=== PATIENT | female | born 1950 | race Caucasian/White ===

== ENCOUNTER 2024-07-11 09:55 | Outpatient (REF) | payer MEDICARE, OTHER, SELFPAY ==
--- OUTSIDE RECORDS SUMMARY | 2024-07-11 11:23 | XMS_ITS ---
Continuity of Care Document (CCD) Created on: July 11, 2024 Danita Kiara M External Reference #: [id number] : [id number] Sex: Female Author Organization [facility] Address [address] [place] [address] [address] [place], [place] Phone [phone] Care Team Providers Care Salad Bar Clerk Name Role Phone Tanja La MD Care Team Information Receive r Unavailable Social History Type Date Description Comments Sex Unknown
== END 2024-07-11 09:56 | disposition home or self-care (01) ==
LOC: HO.HOSX 09:55
PROVIDERS: PCP Family Medicine; Visit Provider Physician Assistant
DX: M50.90 Cervical disc disorder, unspecified, unspecified cervical region (principal)
CPT/HCPCS: 72050; 99202

== ENCOUNTER 2024-07-11 09:55 | Outpatient (AMB) | payer MEDICARE, OTHER, SELFPAY ==
--- NOTE | 2024-07-11 10:36 | A.SPINEOV_ITS ---
Vital Signs 07/11/24 10:45 Height 5 ft 3 in Weight 189 lb BMI 33.5 Intake Visit Reasons: spinal stenosis of lumbar stenosis Intake Note: Ms. Samayoa is here today c/o low back pain that radiates down to the legs Chief Clerk Shelter Required: No Physical Exam Vital Signs: BMI result Body Mass Index 33.5 Assessment & Plan Assessment & Plan (1) Cervical disc disorder: Code(s): M50.90 - Cervical disc disorder, unspecified, unspecified cervical region Category: Medical Plan Dear DR Jo, Thank you for referring Mrs Samayoa to our office today. She is a very nice 73-year-old female with an extensive spinal history including 7 cervical spine surgeries including anterior and posterior, as well as lumbar decompression surgery last year at the [facility]. She had a postoperative infection, and did not get good care there, so she is looking to follow up with us today. Specifically the reason she was sent by according to the patient is left leg weakness which was noted on her routine yearly physical. The patient does have back pain generally in the upper lumbar region. Denies any shooting pain down her leg or tingling or numbness. She does get tingling and numbness of her arms. She is not sure if this dates back all the way to her last neck surgery which was about 10 years ago but it does bother her. She does feel unsteady on her feet at times. She generally just deals with her aches and pains as best she can using [id number] pain medications or marijuana brownies. She had an MRI done at [facility] showing stenosis at L2-3 as well as some degenerative stenosis in the lower thoracic spine. PMH: As mentioned, she has had 7 neck surgeries, the last 10 years ago. History of a lower lumbar surgery, sounds like L4-5 last year at the [facility]. She did well with that in terms of her pain that she had preoperatively was improved but she had poor care, ended up with a superficial infection and had to be on antibiotics but they did not attend to her well. She has had hysterectomy with total oophorectomy when she was 30 years old. Subsequent to this, she has developed osteopenia/osteoporosis. She also has had parathyroidectomy. Bilateral carpal tunnel, knee surgery, breast reduction surgery, hypertension, high cholesterol. Denies any history of heart attacks, strokes, bleeding disorders, blood clots, major abdominal surgery. She did have a pulmonary nodule discovered on a CT scan and she just getting routine follow- ups for that. It did not look suspicious for cancer. Social hx: She has not smoke, she does take marijuana Brownies routinely, occasional alcohol Medications: Lisinopril, simvastatin, amlodipine, sertraline Allergies: None Physical exam: She is awake alert oriented no acute distress, she is able to get up out of a chair albeit slowly, she can walk down the hallway, no unsteadiness of her gait, motor examination reveals some mild hand weakness and a 4-5 left iliopsoas weakness. Distal lower extremity and proximal upper extremity strength was all normal. She is diffusely hyperreflexic, more so in the lower extremities with clonus and Jones's sign on the right hand as well. She has multiple well-healed incisions on the right side of her neck anteriorly, a 18 inch incision extending from the base of her skull all the way down to the upper thoracic. It appears well healed. She has a well-healed incision on her lower lumbar spine. Imaging review: I was unable to look at the images on the computer today due to some technical difficulties with the website for [facility], but apparently it shows that she has stenosis at L2-3 as well as possibly some degenerative changes in the lower thoracic spine that could be effacing the spinal cord. Impression: 73-year-old female with extensive spinal history is listed above, with presentation of some left iliopsoas weakness which was noted on her routine physical exam. She did not want to go back to the [facility] for follow-up due to the care she received there. She was sent today to see us and she is demonstrating some signs of myelopathy on her exam but I am not sure if this is pre-existing. The patient herself has not really noticed a decrease in her functional abilities because of it. I agree that the weakness in her left iliopsoas and the weakness in her hands could be neurological, so we should look a little more thoroughly into this with a cervical MRI and a dedicated thoracic MRI. She does have stenosis in the lumbar spine at L2-3 which can affect the hip flexor muscle groups but she has no leg pain suggesting nerve irritation. Once the MRIs are completed I will call the patient back to reassess. Thank you for allowing us to care for your patient. The total time spent with this visit with this patient was 45 minutes reviewing history, physical exam, lumbar imaging review, and implementation of treatment plan or further diagnostic testing Jose Cruz Thrasher MD,PhD [facility] Orders: Orders MR thoracic spine wo con Today R29.898 - Other symptoms and signs involving the musculoskeletal system MR cervical spine wo con Today R20.0 - Anesthesia of skin XR cervical spine 4V Today M50.90 - Cervical disc disorder, unspecified, unspecified cervical region Coding Level of Care Code New Pt Level 4 (16071) Diagnoses Cervical disc disorder M50.90
[2024-07-11 10:45] VITALS: BMI 33.5
== END 2024-07-11 12:07 | disposition home or self-care (01) ==
PROVIDERS: PCP Family Medicine; Visit Provider Physician Assistant
DX: M50.90 Cervical disc disorder, unspecified, unspecified cervical region (principal)
CPT/HCPCS: 99204

== ENCOUNTER 2024-07-22 11:25 | Outpatient (AMB) | payer MEDICARE, OTHER, SELFPAY ==
--- NOTE | 2024-07-22 11:40 | A.SPINEOV_ITS ---
Intake Visit Reasons: MRI f/up Intake Note: Ms. Samayoa is here to F/u on the results to her MRI. Lumber Cutter Required: No Assessment & Plan Assessment & Plan (1) Cervical disc disorder: Code(s): M50.90 - Cervical disc disorder, unspecified, unspecified cervical region Category: Medical Plan Mrs Samayoa came back today to review her cervical and her thoracic MRI. There were done at [place]. There is no formal report back yet, but I do not see any evidence of spinal cord compression anywhere in the cervical or the thoracic spine to explain her left hip flexor weakness. There are extensive postsurgical changes in the anterior and posterior cervical thoracic spine extending from C3 down to T2. The patient does not notice the symptoms impacting her daily function and she believes they may have been related to her previous spinal cord compression for which she had surgery. This certainly could be a remnant of her previous myelopathy. Her lumbar MRI does show this moderate stenosis at L2-3 but she really does not have any claudicating leg pains to report. There is some lateral recess stenosis on the left at L4-5 at her previous surgical site, but that would not explain hip flexor weakness. 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 If it gets worse, the other option would be to consider brain MRI. Total amount of time spent in this visit was 20 minutes in discussion of symptoms, cervical and thoracic imaging results and subsequent plan of care Jose Cruz Thrasher MD,PhD [facility] Coding Level of Care Code Est Pt Level 3 (33112) Diagnoses Cervical disc disorder M50.90
--- OUTSIDE RECORDS SUMMARY | 2024-07-22 11:44 | XMS_ITS | Continuity of Care Document ---
Author Organization [facility] Address [address] [place] [address] [address] [place], [place] Phone [phone] Care Team Providers Care Manager Strategic Partnerships Name Role Phone Tanja La MD Care Team Information Receive r Unavailable Social History Type Date Description Comments Sex Unknown
== END 2024-07-22 13:34 | disposition home or self-care (01) ==
PROVIDERS: PCP Family Medicine; Visit Provider Physician Assistant
DX: M50.90 Cervical disc disorder, unspecified, unspecified cervical region (principal)
CPT/HCPCS: 99213

== ENCOUNTER → 2024-07-22 11:25 | Outpatient (BNVA) | payer MEDICARE, OTHER, SELFPAY | PROVIDERS: PCP Family Medicine; Visit Provider Physician Assistant | DX: M50.90 Cervical disc disorder, unspecified, unspecified cervical region (principal) | CPT/HCPCS: 99212 ==

== ENCOUNTER 2024-12-01 13:38 | Outpatient (AMB) | payer MEDICARE, OTHER, SELFPAY ==
--- NOTE | 2024-12-01 13:43 | HO.SPINEOV ---
Intake Visit Reasons: LBP & leg pain Intake Note: Ms. Samayoa is here today c/o low back and leg pain. Airline Pilot/First Officer Required: No Assessment & Plan Assessment & Plan (1) Left leg weakness: Code(s): R29.898 - Other symptoms and signs involving the musculoskeletal system Category: Medical (2) Lumbar radiculopathy: Code(s): M54.16 - Radiculopathy, lumbar region Category: Medical Plan Mrs Samayoa is here in follow-up. She was seen here last year for evaluation of a left proximal leg weakness that presented itself without any pain or numbness. At the time we did thoracic imaging at [facility] at the [facility] and we are not clear that there was anything specifically pressing on the cord. There was some mentioned in the radiology report that came later on down the road that there may have been some prominence of the dorsal CSF that maybe causing some constriction of the spinal cord, but it was not clear that this was giving her symptoms. When she underwent her back surgery on the left at L4-5 a year and a half ago, it was presented to her that this could be the source of the weakness, but unfortunately that did not improve the weakness. She comes back today with new symptoms. Over the last few months she developed a worsening of the left leg weakness proximally, and a new right sided lumbar radiculopathy radiating from her back down into her anterior thigh to her knee. The symptoms on the left are still bothersome in the sense that when she is trying to roll over in bed it can be painful and when she is trying to get out of a car she has trouble lifting her leg to get it in position stand. On the right side, it is clearly connected with activity and walking that will give her pain shooting down the front of her leg. On my exam, she is still demonstrating some signs of myelopathy with hyperreflexia and a 2/5 left hip flexor weakness. The right side is full strength. I went back and reviewed her MRI again, there is some slight prominence of the dorsal CSF at T3-4 which is below her previous fusion which extended from C3-T2. I think it is worth looking at that again with an MRI to see if there has been any increase in what the radiologist describes as a potential source for myelopathy. Also, her MRI from last year is also showing disc bulge/herniation on the right at L2-3. This would explain the correct dermatome down into the anterior thigh for the leg pain. I would like to repeat that as well and see if this is still there, or if it is retracted itself. If it is still present, it might be a surgical target for simple diskectomy and decompression. I will see her back after the MRIs are completed. Total amount of time spent in this visit was 20 minutes in discussion of symptoms, previous lumbar and thoracic imaging results and subsequent plan of care Jose Cruz Thrasher MD,PhD [facility] Orders: Orders MR lumbar spine wo/w con Today R29.898 - Other symptoms and signs involving the musculoskeletal system MR thoracic spine wo con Today M54.16 - Radiculopathy, lumbar region Coding Level of Care Code Est Pt Level 3 (83136) Diagnoses Left leg weakness R29.898 Lumbar radiculopathy M54.16
--- OUTSIDE RECORDS SUMMARY | 2024-12-01 14:00 | XMS_ITS | Encounter Summary ---
Author Organization [facility] Address [address] [address] Phone Care Team Providers Care Railway Engineer Name Role Phone Radha Jo Primary Care Provider [phone] Encounter Details Date Type Department Care Team (Late st Contact Info) Description 06/04/2023 Procedure Pass [facility] Periop [address] [place] [address] Social History Tobacco Use Types Packs/Day Years Used Date Smoking Tobacco: Former Smokeless Tobacco: Never Alcohol Use Standard Drinks/Week Comments Yes 0 (1 standard drink = 0.6 oz pur e alcohol) rarely Education Answer Date Recorded Are you interested in more education? Not on marychuy e 05/03/2023 Are you concerned about learning? Not on file 05/03/2023 No 05/03/2023 No 05/03/2023 Digital Access Answer Date Recorded No 05/03/2023 No 05/03/2023 Reliable internet access at home? Not on file 05/03/2023 Device with a working camera? Not on file Intimate Partner Violence Answer Date R ecorded Are you denied basic needs s uch as food, clothing, or medical care? No 06/04/2023 In the past 12 months have y ou been in a relationship with a person who hurts, threatens, or tries to control you? No 06/04/2023 Are you denied basic needs s uch as food, clothing, or medical care? No 06/04/2023 In the past 12 months have y ou been in a relationship with a person who hurts, threatens, or tries to control you? No 06/04/2023 Comments No Sex and Gender Information Value Date Recorded Sex Assigned at Female 05/03/2023 3:34 PM EDT Legal Sex Female 6:59 PM EST Gender Identity Female 05/03/2023 3:34 PM EDT Sexual Orientation Straight 05/03/2023 3: 34 PM EDT documented as of this encounter Functional Status * Calculated C-SSRS Risk Score (Lifetime/Recent) Answer Date of Assessment Author No Risk Indicated 06/05/2023 7:00 AM Nancy Hernandez RN * [place] Suicide Severity Rating Scale (Screener/Recent Self-Report) Question Answer Date of Assessment Author 1. Wish to be (Past 1 Month) No 06/05/2023 7:00 AM Cosmo Fields RN 2. Non-Specific Active Suici juan antonio Thoughts (Past 1 Month) No 06/05/2023 7:00 AM Alyce Fields RN 6. Suicidal Behavior (Lifetime) No 7:00 AM Nancy Fields RN documented as of this encounter Plan of Treatment Not on file documented as of this encounter Visit Diagnoses Not on filedocumented in this encounter Care Teams Railway Engineer Relationship Specialty Start Date End Date Rdaha Jo DO [address] [place] [phone] PCP - General Family Medicine 05/03/23 documented as of this encounter Additional Source Comments The information contained in this document represents components of the legal health record. It is not the complete legal health record.[facility]
--- OUTSIDE RECORDS SUMMARY | 2024-12-01 14:00 | XMS_ITS | Encounter Summary ---
Author Organization [facility] Address [address] [address] Phone Care Team Providers Care Rubber Flap Cutter Name Role Phone Radha Jo Primary Care Provider [phone] Encounter Details Date Type Department Care Team (Late st Contact Info) Description 06/04/2023 Procedure Pass [facility] [address] [place] [address] Social History Tobacco Use Types Packs/Day Years [...] 06/05/2023 7:00 AM Nancy Hernandez RN * [place] Suicide Severity Rating Scale (Screener/Recent Self-Report) Question Answer Date of Assessment Author 1. Wish to be (Past 1 Month) No 06/05/2023 7:00 AM Cosmo Fielsd RN 2. Non-Specific Active Suici juan antonio Thoughts (Past 1 Month) No 06/05/2023 7:00 AM Alyce Fields RN 6. Suicidal Behavior (Lifetime) No 7:00 AM Nancy Fields RN documented as of this encounter Plan of Treatment Not on file documented as of this encounter Visit Diagnoses Not on filedocumented in this encounter Care Teams Rubber Flap Cutter Relationship Specialty Start Date End Date Radha Jo DO [address] [place] [phone] PCP - General Family Medicine 05/03/23 documented as of this encounter Additional Source Comments The information contained in this document represents components of the legal health record. It is not the complete legal health record.[facility]
--- OUTSIDE RECORDS SUMMARY | 2024-12-01 14:00 | XMS_ITS | Continuity of Care Document ---
Author Organization [facility] Address [address] [place] [address] [address] [place], [place] Phone [phone] Care Team Providers Care Exam Proctor Name Role Phone Tanja La MD Care Team Information Receive r Unavailable Social History Type Date Description Comments Sex Unknown
--- OUTSIDE RECORDS SUMMARY | 2024-12-01 14:00 | XMS_ITS | Clinical Summary ---
Author Organization [facility] Address [address] [place] [phone] Phone Care Team Providers Care Collar Sewer Name Role Phone Radha Jo Primary Care Provider [phone] Allergies Active Allergy Reactions Criticality Noted Date Comments Carisoprodol Other (See Comments) 12/03/2013 UNKNOWN Codeine Other (See Comments) 12/03/2013 NAUSEA,VOMITING Influenza Virus Vaccine, Specific Other (See Comments) 12/03/2013 ANAPHYLAXIS Iodinated Contrast Media Other (See Comments) 12/03/2013 UNKNOWN Morphine Other (See Comments) 12/03/2013 RASH,HIVES Nabumetone Other (See Comments) 12/03/2013 UNKNOWN Paroxetine Other (See Comments) 12/03/2013 RASH Pregabalin Other (See Comments) 12/03/2013 SEVERE SHAKING Rofecoxib Other (See Comments) 12/03/2013 UNKNOWN Sulfadiazine Other (See Comments) 12/03/2013 UNKNOWN Sulfamethoxazole Other (See Comments) 12/03/2013 UNKNOWN Tramadol Other (See Comments) 12/03/2013 UNKNOWN Medications lisinopril (PRINIVIL,ZESTR IL) 20 MG tablet Take 40 mg by mouth every morning. 3 Active sertraline (ZOLOFT) 50 MG tablet Take 1 tablet by mouth every morning. 3 Active simvastatin (ZOCOR) 20 MG tablet Take 20 mg by mouth nightly at bedtime. 3 Active polycarbophil (FIBERCON) 625 mg tablet Take 625 mg by mouth daily. Active cholecalciferol (VITAMIN D3) 400 unit tablet Take 400 Units by mouth daily. Active acetaminophen (TYLENOL) 325 mg tablet Take 2 tablets (650 mg total) by mouth every 6 (six) hours as needed. 90 tablet Active diazePAM (VALIUM) 5 MG tablet Take 1 tablet (5 mg total) by mouth every 8 (eight) hours as needed. 14 tablet 3 Active Additional Information Patient not taking.Reported on 07/10/2023 oxyCODONE 5 MG immediate release tablet Take 1-2 tablets (5-10 mg total) by mouth every 4 (four) hours as needed. Partial fill ok 30 tablet 3 Active Additional Information Patient not taking.Reported on 07/10/2023 bisacodyl (DULCOLAX) 5 mg EC tablet Take 1 tablet (5 mg total) by mouth daily as needed. 30 tablet 3 Active amoxicillin (AMOXIL) 875 MG tablet 3 Active Active Problems Problem Noted Date Diagnosed Date Lumbar radiculopathy 06/04/2023 Herniation of nucleus pulposus 01/01/2014 Overview (09/12/2014): Herniation of nucleus pulposus Spondylosis 11/21/2013 Overview (09/12/2014): Spondylosis; C7-T1 Neck pain 11/21/2013 Overview (09/12/2014): Neck pain Social History Tobacco Use Types Packs/Day Years Used Date Smoking Tobacco: Former Smokeless Tobacco: Never Tobacco Cessation:Counseling Given: Not Answered Alcohol Use Standard Drinks/Week Comments Yes 0 [...] Orientation Straight 05/03/2023 3: 34 PM EDT Last Filed Vital Signs Vital Sign Reading Time Taken Comments Blood Pressure 177/76 08/14/2023 10:22 AM EST Pulse 59 08/14/2023 10:22 AM EST Temperature 36.3 ??C (97.3 ??F) 07/10/2023 10:[address] Respiratory Rate 16 08/14/2023 10:13 AM EST Oxygen Saturation 97% 08/14/2023 10:22 AM EST Inhaled Oxygen Concentration - - Weight 89.8 kg (198 lb) 08/14/2023 10:13 AM EST Height 157.5 cm (5' 2 ) 08/14/2023 10:13 AM EST Body Mass Index 36.21 08/14/2023 10:13 AM EST Plan of Treatment Health Maintenance Due Date Last Done Comments LIPID PANEL 1950 DEPRESSION SCREENING 1962 SMOKING Hx and SMOKELESS TOBACCO SCREENING 12/07/1963 HEPATITIS B SCREENING 1968 HEPATITIS C SCREENING 1968 MAMMOGRAM 1990 COLOGUARD 12/07/1995 COLONOSCOPY 12/07/1995 COLORECTAL CANCER SCREENING 12/07/1995 FIT TEST 12/07/1995 FOBT 12/07/1995 SIGMOIDOSCOPY 12/07/1995 VIRTUAL COLONOSCOPY 12/07/1995 CREATININE LEVEL 06/15/2015 06/15/2014, , 05/08/2014, Additional history exists POTASSIUM LEVEL 06/15/2015 06/15/2014, 04/22, 05/08/2014, Additional history exists OSTEOPOROSIS SCREENING INITIAL (ONE-TIME) 12/07/2015 PNEUMOCOCCAL VACCINES (50+ years) (2 of 2 - PCV) 11/30/2019 11/29/2018 COVID-19 VACCINE ( season) 2024 05/17/2023, 04/25/2022, 02/01/2022, Additional history exists Adult Td,Tdap Booster 03/28/2031 03/28/2021 ZOSTER VACCINES Completed 07/28/2020, 05/24/2020 RSV VACCINE Completed 06/28/2023 HEPATITIS A VACCINES Aged Out No long er eligible based on patient's age to complete this topic HEPATITIS B VACCINES Aged Out No long er eligible based on patient's age to complete this topic HIB VACCINES Aged Out No longer eligi ble based on patient's age to complete this topic MENINGOCOCCAL VACCINES (ACWY) Aged Out No longer eligible based on patient's age to complete this topic Medical Devices Not on file Procedures Procedure Name Priority Date/Time Associated Diagnosis Comments HISTORICAL LAB Routine 06/15/2014 10:18 PM EST from Last 3 Months or Most Recently Relevant to Health Maintenance Results * (ABNORMAL) Historical Lab (06/15/2014 10:18 PM EST) GLUCOSE 91 70 - 100 mg/dL [facility] UREA N 16 6 - 23 mg/dL [facility] CREATININE 1.15 0.50 - 1.20 mg/dL [facility] eGFR 48(A) 60 - 150 mL/min/1.7 3m2 [facility] Comment:If patient is black, multiply result by 1.21 SODIUM 143 136 - 145 mmol/L [facility] POTASSIUM 3.9 3.4 - 5.0 mmol/L [facility] CHLORIDE 104 98 - 107 mmol/L [facility] TOTAL CO2 27 22 - 31 mmol/L [facility] CALCIUM 9.6 8.8 - 10.7 mg/dL [facility] ANION GAP 12 5 - 17 mmol/L [facility] 06/15/2014 10:1 8 PM EST Comment:BLOOD Narrative [facility] - 06/15/2014 10:18 PM EST [id number] us Conversion Provider Not In Sys LAB BLOOD ORDERAB LES Final Result Performing Organization Address City/State/[place] Co de Phone Number [address] [address] from Last 3 Months or Most Recently Relevant to Health Maintenance Insurance MEDICARE PART A & B Member Subscriber Plan / Payer (Ef fective 2015-Present) Name:Kiara Samayoa Member ID:[id number] Relation to Subscriber:Self Name:Kiara Samayoa Subscriber ID:[id number] Payer ID:[id number] Group ID:Not on file Type:Medicare Address: [email or web address] [facility] [address] [place] [id number] [facility] MEDICARE SUPPLEMENT MEDICARE PART A & [place] [address] [place] [address] [employer] MEDICARE SUPPLEMENT MEDICARE PART A & B [facility] MEDICARE SUPPLEMENT MEDICARE PART A & B [employer] MEDICARE SUPPLEMENT MEDICARE PART A & B [place] MEDICARE SUPPLEMENT MEDICARE PART A & B [facility] MEDIC[facility] SUPPLEMENT Advance Directives For more information, please contact: [phone] (9AM - 5PM [facility], Sunday-Sunday) * Full Code (Latest Code Status on File) Date Activated Date Inactivated Comments 06/04/2023 9:19 AM Question Answer Comments Code Status Confirmed With: Patient Care Teams Collar Sewer Relationship Specialty Start Date End Date Radha Jo DO [address] [place] [address] [address] [place] [address] PCP - General Family Medicine 05/03/23 Additional Source Comments The information contained in this document represents components of the legal health record. It is not the complete legal health record.[facility]
--- OUTSIDE RECORDS SUMMARY | 2024-12-01 14:00 | XMS_ITS | Encounter Summary ---
Author Organization [facility] Address [address] [place] [id number] Phone Care Team Providers Care Developer Architect Name Role Phone Radha Jo DO Primary Care Provider [phone] Encounter Details Date Type Department Care Team ([facility] st Contact Info) Description 05/03/2023 Procedure Pass [facility] Imaging, [place] [address] [place] [address] Social History Tobacco Use Types Packs/Day Years Used Date Smoking Tobacco: Former Education Answer Date Recorded Are you interested in more education? Not on marychuy e 05/03/2023 Are you concerned about learning? Not on file 05/03/2023 No 05/03/2023 No 05/03/2023 Digital Access Answer Date Recorded No 05/03/2023 No 05/03/2023 Reliable internet access at home? Not on file 05/03/2023 Device with a working camera? Not on file Comments Unknown Sex and Gender Information Value Date Recorded Sex Assigned at Female 05/03/2023 3:34 PM EDT Legal Sex Female 6:59 PM EST Gender Identity Female 05/03/2023 3:34 PM EDT Sexual Orientation Straight 05/03/2023 3: 34 PM EDT documented as of this encounter Plan of Treatment Not on file documented as of this encounter Visit Diagnoses Not on filedocumented in this encounter Care Teams Developer Architect Relationship Specialty Start Date End Date Radha Jo DO NPI: [id number] [place] [address] [address] [place] [address] PCP - General Family Medicine 05/03/23 documented as of this encounter Additional Source Comments The information contained in this document represents components of the legal health record. It is not the complete legal health record.[facility]
--- OUTSIDE RECORDS SUMMARY | 2024-12-01 14:00 | XMS_ITS | Data Portability ---
Author Organization [facility] Address [address] [place] [address] Care Team Providers Care Sdc Teacher Name Role Phone BONNIE PATEL Primary Care Provider [phone] BONNIE PATEL Referring Provider Assessment No assessment recorded. Plan of Treatment Reminders Order Date Submit Date Provider Last Modified By Organization Details Last Modified Time Details Appointments PCP-Offic e Visit-30 Min 2024 09:30A M Radha DiVito, DO Not available Not available Not available PCP-Medic are Exam-30 Min 2024 09:00A M Radha DiVito, DO Not available Not available Not available Lab vitamin B12 + folate, serum or blood 2024 025 [facility] Patient Reg, [address] [place], [address], 11/06/2024 22:07:15 rapid strep group A, throat 2024 025 In-Office Order, Internal Use Only DO Not Attach Compendium DO Not Attach Compendium, Do Not Delete/merge, [id number] 10/17/2024 16:38:09 25-hydrox yvitamin D2 + 25-hydrox yvitamin D3, QN, serum or plasma 2024 025 [facility] Patient [facility], [address] [place], [address], 10/08/2024 15:21:37 Referral neurologi mily surgeon referral - Please schedule and advise patient. Thank you! 2023 024 [email or web address] Barrera Thrasher MD, [address] [place] [address] [address], [place], [address], 11/05/2024 09:33:45 Procedures None recorded. Surgeries None recorded. Imaging None recorded. Medication Orders nystatin 100,000 unit/mL oral suspensio n 2024 025 [facility], [address] [place], [address], 10/16/2024 12:37:26 Prolia 60 mg/mL subcutane ous syringe 2024 025 Not available 09/03/2024 12:34:47 Prolia 60 mg/mL subcutane ous syringe [address] [facility], [address] [place], [address], 08/28/2024 09:22:48 Patient TargetsNo targets recorded. Patient InstructionsNo instructions recorded. Reason for Referral Neurological Surgeon Referra l for Spinal stenosis of lumbar region Please schedule and advise patient. Thank you! Referring Physician: Radha Troy, Family Medicine, Encounter Date: 07/02/2024 Results Created Date Observation Date Name Description Value Unit Range Abnormal Flag Note LastModifiedBy Organization Detail LastModifiedTime 10/09/1910/08/2024 VITAM IN D 25-OH TOTAL vitamin D 25-oh total 32.4 NG/mL Refer ence Range : Defic ient <20 ng/mL Insuf ficie nt 21-29 ng/mL Suffi cient >30 ng/mL Not Available [facility] Laboratory Department [address] [place], [address] 10/08/2024 15:21:37 10/18/1910/17/2024 rapid strep group A, throa t Results negati ve Not Available In-Office Order Internal Use Only DO Not Attach Compendium DO Not Attach Compendium, Do Not Delete/merge, [id number] 10/17/2024 16:36:17 11/07/19 25 11/06/2024 VITAM IN B12 AND FOLAT E vitamin B12 1748 pg/mL 232-12 45 high Not Available [facility] Laboratory Department [address] [place], [address] 11/06/2024 22:07:15 11/07/19 25 11/06/2024 VITAM IN B12 AND FOLAT E folate 10.2 NG/mL 4.8-18 .8 normal Marlene l: >5.9 ng/mL Inter media te: 4.0-5 .9 ng/mL Defic ient: <4.0 ng/mL Not Available [facility] Laboratory Department [address] [place], [address] 11/06/2024 22:07:15 06/04/20 24 06/03/2024 MR lumba r spine (C-) CPT 23605 [facility] Access ion Number : [id number] Sofía baez Name: Kiara Samayoa Record Number : [id number] Date of : 1950 Date of Exam: 2023 Referr ing Physic usha: [facility] [address] [facility] [address] Exam: MR Lumbar Spine (C-) CPT 97847 Room Descri ption: [facility] Siem Altea 1.5 [facility] al [address] [place] [address] Magnet ic Resona nce Report Signed Sofía t: Kiara Samayoa MR#: [id number] : 1950 Acct:H [id number] Age/Se x: 73 / F ADM Date: Loc: HE.MRI Attend ing Dr: Radha Troy DO Orderi Physic usha: Radha Troy DO Date of Servic e: Proced ure(s) : MR lumbar spine wo con Access ion Number (s): [id number] H cc: Radha Troy DO EXAM: MR lumbar spine wo con CLINIC AL INDICA TION: Reason For Exam: Radicu lopath y PULSE SEQUEN REYES: Sagitt al T1, T2, STIR; guzman l T2; axial T2 from T11 to L5-S1. COMPAR ANOOP: Lumbar spine radiog raph 023 FINDIN GS: Verteb ral body height s mainta ined. Adjace nt marrow signal . No suspic ious marrow lesion . Multil evel loss of interv ertebr al disc height and disc desicc ation as well as diffus e disc bulgin g. Slight straig htenin g of usual lumbar lordos is. Mild rightw paige curvat ure of lumbar spine center ed at L5. Sacroi liac joints appear intact . Conus medull aníbal termin ates at T12-L1 . Mild fatty atroph y of parasp inal muscul ature. Suscep tibili ty artifa ct within the bad credit collector ior subcut aneous tissue s at level of L3-L4, as well as equivo mily left hemila minoto my at level of L4, in keepin g with prior spinal surger y. T11-T1 2: Focal right parace ntral disc protru richard measur ing 9 x 4 x 10 mm (TV x AP x SI) which modera tely efface s the right latera l recess . No centra l canal or neural forami nal narrow ing. T12-L1 : No canal or forami nal narrow ing L1-L2: No canal or forami nal narrow ing L2-L3: Diffus e disc bulge with superi mposed focal right parace ntral disc protru richard measur ing 9 x 5 x 9 mm (TV x AP x SI) which modera te to severe ly narrow s right latera l recess and mildly narrow s right neural forame n as well as modera te to severe ly narrow ing centra l canal and near comple te efface ment of CSF signal around cauda equina and tether ing of nerve root as above and below this level. Mild facet arthro gianna bilate rally. L3-L4: Broad- based right latera l disc bulge mildly narrow s right neural forame n. No centra l canal, latera l recess or left forami nal narrow ing. Mild facet of the bilate rally. L4-L5: Modera te to severe facet arthro gianna mildly narrow s transv erse dimens ion of centra l canal and modera tely narrow s left latera l recess as well as severe ly narrow ing the left neural forame n. Mild narrow ing of right neural forame n. Hemila minoto my of L4 on left with adjace nt postsu rgical scarri ng. L5-S1: No canal or latera l recess narrow ing. Disc osteop hyte comple xes mildly narrow neural forami na bilate rally. Mild-t o-mode rate facet arthro gianna bilate rally. Electr onical ly Signed in Aragon cribe By FAIZAN Shea MD, MD 024 MR/MR lumbar spine wo con IMPRES RICHARD: 1. Right parace ntral disc protru sions at T11-12 and L2-L3 with narrow ing of latera l recess es at these levels . 2. High-g rade spinal stenos is L2-L3. 3. Multil evel additi onal degene rative change s, as descri bed above. Dictat ed By: Faizan shea MD Signed By: 1156 DD/DT: 1755 TD/TT: 181 Transc riptio nist: Electr onical ly Signed By: Faizan shea MD [address] [facility] [address] [facility], [place], [address], 06/18/2024 10:13:52 07/06/20 24 07/05/2024 LDCT, chest , for lung [facility] [address] [facility] [address] CT Scan Report Signed Patien t: Kiara Samayoa MR#: [id number] : 1950 Acct:H [id number] Age/Se x: 73 / F ADM Date: Loc: HE.CT Attend ing Dr: Radha Troy DO Orderi ng Physic usha: Radha Troy DO Date of Servic e: Proced ure(s) : CT lung screen ing Access ion Number (s): [id number] H cc: Radha Troy DO EXAM: CT lung screen ing CLINIC AL INDICA TION: Lung cancer screen ing study. Ciro briscoe 30-pac k-year tobacc o smokin g histor y, curren t smoker or has quit within the past 15 years. No signs or sympto ms of lung cancer . Has partic ipated in lung cancer screen ing counse ling prior to CT. TECHNI QUE: Non-ga annia CT of the chest was perfor med withou t contra st using depart mental low dose CT lung cancer screen ing protoc ol. Multip lanar reform ats genera annia. 3D maximu m intens ity projec tion (MIP) images genera annia on the same workst ation under concur rent physic usha superv ision. Automa annia exposu re contro l dose reduct ion techni que utiliz ed. Lung-R ADS is used to classi fy findin gs, and is a classi ficati on propos ed aid with findin gs in low dose CT screen ing exams for lung cancer , with the goal to standa rdized follow up and manage ment decisi ons. For [facility], visit: http:/ /[email or web address] /Quali ty-Saf ety/Re source s/Lung RADS COMPAR ANOOP: Chest x-ray November 2021, mammog lindsay February 2024 FINDIN GS: Image qualit y, sensit ivity for detect ion of pathol ogy, and specif icity of findin gs reduce d by imagin g artifa cts due to low-do se techni que. Nodule s (solid and measur ed in axial plane unless otherw ise specif ied, and may be marked on MIP images ): 6 mm right middle lobe on image 68. 10 mm right lower lobe image 70 Emphys ematou s change s: Absent . Bronch iectas is: Mild. Bronch itis: Mild. Pleura l effusi ons: Absent . Pneumo thorax : Absent . Endolu savana airway lesion s: None. Other findin gs: None Medias tinum and kandis: Probab le mildly enlarg ed 1.2 cm and 1.4 cm right hilar lymph nodes. Sensit ivity of CT size criter ia for detect ing lymph node pathol ogy is approx imatel y 85 percen t. Heart: No cardio megaly or perica rdial effusi on Guzman ry artery calcif icatio ns (subje ctive/ qualit ative assess ment): Modera te Pulmon burak vascul ature: Nondil ated. This study is nondia gnosti c for detect ion of most other pathol ogy of the pulmon burak vascul ature, includ ing pulmon burak emboli sm. Thorac ic aorta: Nondil ated. This study is nondia gnosti c for evalua tion of arteri al dissec tions and occlus ions. Bones and soft tissue s: There are degene rative change s thorac ic spine. CT relati vely insens itive for detect ion of ligame nt and interv ertebr al disc pathol ogy, subcen timete r lucent lesion s, as well as for many pathol ogies within the spinal canal. Periph erally calcif ied lesion in the left breast report ed as benign on compar anoop mammog lindsay. Partia lly visibl e surgic al hardwa re in the cervic al and upper thorac ic spine Electr onical ly Signed in Aragon cribe By Kerry Sellers MD 022 CT/CT lung screen ing IMPRES RICHARD: LUNG-R ADS Catego ry 4X (very suspic ious, greate r than 15 percen t chance of malign nolvia). Specif ically : 10 mm solid nodule right lower lobe with probab le right hilar lympha denopa thy. Recomm end 3 month follow up diagno stic chest CT with contra st, PET/CT , and/or tissue sampli ng. Manage ment is predic ated on the probab ility of malign nolvia based on patien t evalua tion, patien t prefer ence, and comorb iditie s. Additi onal findin gs as above. Dictat ed By: Kerry Sellers MD Signed By: 942 DD/DT: 935 TD/TT: 942 Transc riptio nist: [place] [facility] [address] [place], [place] [address], [address], 07/07/2024 09:56:07 07/07/20 24 07/05/2024 LDCT, chest , for lung cance r scree [facility] [address] [facility] [address] CT Scan Report Signed with Addend heena Gore t: Kiara Samayoa MR#: [id number] : 1950 Acct:H [id number] Age/Se x: 73 / F ADM Date: Loc: HE.CT Attend ing Dr: Radha Troy DO Orderi ng Physic usha: Radha Troy DO Date of Servic e: Proced ure(s) : CT lung screen ing Access ion Number (s): [id number] H cc: Radha Troy DO ADDE NDUM Contac annia Troy DO's office spoke with Stephan melgoza on at 12:35p m alread y reciev ed report .emi Electr onical ly Signed in Aragon cribe By Kerry Sellers MD Addend um Dictat ed By: Kerry Sellers MD Addend um Signed By: 1255 Addend um Cosign ed By: DD/DT: 6 TD/TT: 3 EXAM: CT lung screen ing CLINIC AL INDICA TION: Lung cancer screen ing study. Greate r than 30-pac k-year tobacc o smokin g histor y, curren t smoker or has quit within the past 15 years. No signs or sympto ms of lung cancer . Has partic ipated in lung cancer screen ing counse ling prior to CT. TECHNI QUE: Non-ga annia CT of the chest was perfor med withou t contra st using depart mental low dose CT lung cancer screen ing protoc ol. Multip lanar reform ats genera annia. 3D maximu m intens ity projec tion (MIP) images genera annia on the same workst ation under concur rent physic usha superv ision. Automa annia exposu re contro l dose reduct ion techni que utiliz ed. Lung-R ADS is used to classi fy findin gs, and is a classi ficati on propos ed aid with findin gs in low dose CT screen ing exams for lung cancer , with the goal to standa rdized follow up and manage ment decisi ons. For more inform ation, visit: http:/ /www.a [email or web address] /Quali ty-Saf ety/Re source s/Lung RADS COMPAR ANOOP: Chest x-ray November 2021, mammog lindsay February 2024 FINDIN GS: Image qualit y, sensit ivity for detect ion of pathol ogy, and specif icity of findin gs reduce d by imagin g artifa cts due to low-do se techni que. Nodule s (solid and measur ed in axial plane unless otherw ise specif ied, and may be marked on MIP images ): 6 mm right middle lobe on image 68. 10 mm right lower lobe image 70 Emphys ematou s change s: Absent . Bronch iectas is: Mild. Bronch itis: Mild. Pleura l effusi ons: Absent . Pneumo thorax : Absent . Endolu savana airway lesion s: None. Other findin gs: None Medias tinum and kandis: Probab le mildly enlarg ed 1.2 cm and 1.4 cm right hilar lymph nodes. Sensit ivity of CT size criter ia for detect ing lymph node pathol ogy is approx imatel y 85 percen t. Heart: No cardio megaly or perica rdial effusi on Guzman ry artery calcif icatio ns (subje ctive/ qualit ative assess ment): Modera te Pulmon burak vascul ature: Nondil ated. This study is nondia gnosti c for detect ion of most other pathol ogy of the pulmon burak vascul ature, includ ing pulmon burak emboli sm. Thorac ic aorta: Nondil ated. This study is nondia gnosti c for evalua tion of arteri al dissec tions and occlus ions. Bones and soft tissue s: There are degene rative change s thorac ic spine. CT relati vely insens itive for detect ion of ligame nt and interv ertebr al disc pathol ogy, subcen timete r lucent lesion s, as well as for many pathol ogies within the spinal canal. Periph erally calcif ied lesion in the left breast report ed as benign on compar anoop mammog lindsay. Partia lly visibl e surgic al hardwa re in the cervic al and upper thorac ic spine Electr onical ly Signed in Aragon cribe By Kerry Sellers MD 022 CT/CT lung screen ing IMPRES RICHARD: LUNG-R ADS Catego ry 4X (very suspic ious, greate r than 15 percen t chance of malign nolvia). Specif ically : 10 mm solid nodule right lower lobe with probab le right hilar lympha denopa thy. Recomm end 3 month follow up diagno stic chest CT with contra st, PET/CT , and/or tissue sampli ng. Manage ment is predic ated on the probab ility of malign nolvia based on patien t evalua tion, patien t prefer ence, and comorb iditie s. Additi onal findin gs as above. Dictat ed By: Kerry Sellers MD Signed By: 43 DD/DT: 935 TD/TT: 942 Transc riptio nist: [place] [facility] [address] [place] [address], [address], 07/07/2024 16:38:44 08/20/19 25 08/18/2024 DEXA, axial skele [facility] [address] [place] [address] XRay Report Signed Sofía t: Kiara Samayoa MR#: [id number] : 1950 Acct:A [id number] Age/Se x: 73 / F ADM Date: Loc: HE.GAYE Camryn Attend ing Dr: Radha Troy DO Orderi ng Physic usha: Radha Troy DO Date of Servic e: Proced ure(s) : XR DEXA axial skelet on Access ion Number (s): [id number] H cc: Radha Troy DO EXAM: XR DEXA axial skelet on CLINIC AL INDICA TION: Decrea sed estrog en level FINDIN GS: Bone minera l densit y measur ed at the right femora l neck is 0.692 g/cent imeter s square d with a T score of -2.5. Electr onical ly Signed in Aragon cribe By FAIZAN Shea MD, MD 045 XR/XR DEXA axial skelet on IMPRES RICHARD: Osteop orosis , based on [employer]i zation criter ia. Full report to follow . Dictat ed By: Faizan shea MD Signed By: 1639 DD/DT: 933 TD/TT: 933 Transc riptio nist: [email or web address] [facility] [address] [place], [address], 08/25/2024 08:52:08 08/21/19 25 07/11/2024 XR, cervi mily spine No observ ation record ed. [email or web address] [facility] [address] [place], [address], 08/25/2024 12:22:55 08/22/19 25 08/18/2024 bone densi ty No observ ation record ed. [email or web address] Not Available 2024 08:52:09 10/04/19 25 10/03/2024 CT, chest , w/o contr ast [facility] [address] [place] [address] CT Scan Report Signed Sofía t: Kiara Samayoa MR#: [id number] : 1950 Acct:A [id number] Age/Se x: 73 / F ADM Date: Loc: HE.ACT Attend ing Dr: Radha Troy DO Orderi ng Physic usha: Radha Troy DO Date of Servic e: Proced ure(s) : CT chest wo IV con Access ion Number (s): [id number] H cc: Radha Troy DO Proced ure: CT chest wo IV con 025 2:30 PM Indica tions: 73 years old asympt omatic Female with a histor y of cigare tte smokin g meetin g NCCN high-r isk criter ia for lung screen ing. SCREEN ING VISIT: Annual . COMPAR ANOOP: 2023 TECHNI QUE: Low dose CT of the chest was perfor med from the apices throug h the diaphr agms withou t intrav enous contra st. Automa annia exposu re contro l techni ques were used. Sagitt al, guzman l and axial MIP reform atted images were perfor med. LOW DOSE CT LUNG CANCER SCREEN ING FINDIN GS: Lung Screen ing Specif ic (Lung- RADS): The previo usly seen right lower lobe subple ural nodule measur ing 10 mm measur es 8 mm on the curren t exam. Potent ially Signif icant Incide ntals: Mild guzman ry artery calcif icatio n Pulmon burak Incide ntals: Stable right middle lobe scar abutti ng the pleura (8:84) . Other Incide ntals: Stable degene rative change s of the spine. Stable orthop edic hardwa re at the C5-T1 levels Electr onical ly Signed in [facility] By Greg Leon MD 045 CT/CT chest wo IV con IMPRES RICHARD: 1. Right lower lobe nodule stable or dimini shed in size compar ed to the prior study. 2. No signif icant incide ntal findin gs. Lung-R ADS 2: Benign appear ance or behavi or (inclu yadira screen ing exams with nodule s having a very low likeli baird of becomi ng a clinic ally active cancer due to nodule size or lack of nodule growth ). RECOMM ENDATI ONS: Contin ue annual LDCT lung screen ing in 12 months . Electr onical ly Signed By: Greg Leon MD On: 1502 Dictat ed By: Greg Leon MD 1430 Signed By: Greg Leon MD 1502 [email or web address] [facility] [address] [facility], [place], [address], 10/08/2024 11:32:39 Result Notes None recorded. Problems Name Problem SNOMED Code Status Onset Date Resolution Date Notes Provider Name and Address Organization Details Recorded Time Fracture of bone of head 532338629 Active 2022 communite d impacted humeral head and neck fracture. IDRIS Avery [place] - [facility] 3 15:21:51 Major depressiv e disorder 477794729 Active 2022 Radha Troy [address] [place], [address], [facility] 3 11:10:29 Gastroeso phageal reflux disease 089430879 Active 2022 Tiffanie Alanis CCMA null, [facility] 3 15:25:46 Hyperlipi demia 03681544 Active 2022 Tiffanie Alanis CCMA null, [facility] 3 15:25:55 Hypertens francine disorder 23516709 Active 2022 Tiffanie Alanis CCMA null, [facility] 3 15:26:04 Parathyro id adenoma 657095783 Active 2022 removed 3 AND LEFT 1 Radha Troy [address] [place], [address], [facility] 3 11:15:04 Bilateral cataracts 52209797 Active 2022 Tiffanie Alanis CCMA null, [facility] 3 15:39:18 Arthritis of left hip 004963943289 9105 Active 2022 Tiffanie Alanis CCMA null, [facility] 3 15:51:58 Chronic insomnia 740932029 Active 2022 Tiffanie Alanis CCMA null, [facility] 3 15:52:18 Constipat ion 86278808 Active 2022 Radha Troy [address] [place], [address], [facility] 3 11:28:18 Problem Notes None recorded. Procedures Surgical History Date Name Laterality Status Provider Name and Address Organization Details Recorded Time 024 Mini-Mental State Exam (MMSE) completed Radha Troy [address], [place], [address], [facility] 05/16/2024 14:20:57 024 Instrumental Activities of Daily Living completed Radha Zhaobritney, [address] [facility] [place], [address], [facility] 05/16/2024 14:20:57 024 Activities of Daily Living Scale completed Radha Woodrow, [address] [facility] [place], [address], [facility] 05/16/2024 14:20:57 024 Date of Last Mammogram completed Tiffanie Alanis [facility] 03/13/2024 11:31:34 023 operative procedure on spinal structure completed Adeel Samayoa MA [facility] 07/13/2023 10:35:26 023 Corticosteroid Injection - HIP completed [facility]ANH [place] [facility] [place] [address], [facility] 02/22/2023 10:33:54 023 Corticosteroid Injection - HIP completed [facility]AN[facility] [place] [facility] [place], [address], [facility] 01/04/2023 07:29:06 022 Corticosteroid Injection - HIP completed [facility]AN[facility] [place] [facility] [place], [address], [facility] 07/20/2022 08:37:19 022 Cataract Surgery completed Tiffanie Alanis [facility] 12/26/2022 15:54:37 022 Cataract Surgery completed Tiffanie Alanis [facility] 12/26/2022 15:54:17 022 Corticosteroid Injection - KNEE completed [facility] [place] [facility] [place], [address], [facility] 04/03/2022 13:39:41 colonoscopy completed Tiffanie Alanis [facility] 12/26/2022 15:27:46 Corticosteroid Injection - KNEE completed Laura Remy MA [facility] 05/17/2020 08:29:35 Knee arthroscopy/surgery completed Junito Thrasher [facility] 04/06/2020 08:00:30 abdominal hysterectomy completed Tiffanie Alanis [facility] 12/26/2022 15:29:05 parathyroidectomy completed Tiffanie Alanis [facility] 12/26/2022 15:29:54 procedure on spine completed Shubham Alanis [facility] 12/26/2022 15:30:59 procedure on knee completed Tiffanie Alanis [facility] 12/26/2022 15:31:05 Breast reduction completed Tiffanie Alanis [facility] 12/26/2022 15:31:12 Imaging Results Imaging Date Name Status LastModified by [facility] Details LastModified Time 06/03/2024 MR lumbar spine (C-) CPT [address] [facility] [address] [place], [address], 06/18/2024 10:13:52 07/05/2024 LDCT, chest, for lung cancer screening [place] [address] [facility] [address] [place] [address], [address], 07/07/2024 09:56:07 07/05/2024 LDCT, chest, for lung cancer screening [email or web address] [address] [place] [address], [address], 07/07/2024 16:38:44 08/18/2024 DEXA, axial skeleton completed [address] Radiology Department [address] [place], [address], 08/25/2024 08:52:08 07/11/2024 XR, cervical spine completed [email or web address] [facility] [address] [place], [address], 08/25/2024 12:22:55 08/18/2024 bone density completed [place] [address] Information not available 08/25/2024 08:52:09 10/03/2024 CT, chest, w/o contrast completed [address] Radiology Department [address] [place], [address], 10/08/2024 11:32:39 Procedure Notes None recorded. Medical Equipment None Reported. Allergies Allergen ID Allergen Name Allergen Category Reaction Reaction Severity Criticality Documentation Date Start Date Code Code System Note Provider Name and Address Organization Details Recorded Time 427075 pholcodin e Not available Not available Not available Not available 11/21/2021 86533 RxNorm Aurora McGuirk [facility] 2 11:33:47 161060 sulfadiaz ine medicatio n Not available Not available Not available 11/21/2021 [id number] RxNorm Aurora McGuirk [facility] 2 11:34:09 [id number] sulfameth izole Not available Not available Not available Not available 11/21/2021 [id number] RxNorm Aurora McGuirk [facility] 2 11:34:30 [id number] morphine medicatio n Not available Not available Not available 11/21/2021 [id number] RxNorm Aurora McGuirk [facility] 2 11:34:37 [id number] carisopro dol medicatio n Not available Not available Not available 11/21/2021 2101 RxNorm Aurora McGuirk [facility] 2 11:34:46 [id number] Paxil medicatio n Not available Not available Not available 11/21/2021 13656 8 RxNorm Aurora McGuirk [facility] 2 11:34:52 [id number] Ultram medicatio n Not available Not available Not available 11/21/2021 28760 6 RxNorm Aurora McGuirk null, [facility] 2 11:35:00 [id number] Relafen medicatio n Not available Not available Not available 11/21/2021 [id number] 4 RxNorm Aurora McGuirk null, [facility] 2 11:35:11 [id number] Vioxx medicatio n Not available Not available Not available 11/21/2021 [id number] 9 RxNorm Aurora McGuirk null, [facility] 2 11:35:22 [id number] Lyrica medicatio n Not available Not available Not available 11/21/2021 30595 1 RxNorm Aurora McGuirk null, [facility] 2 11:35:47 Medications Name Sig Start Date Stop Date Status Note LastModified by Organization Details LastModified Time cyclobenz aprine 10 mg tablet TAKE 1 TABLET BY MOUTH THREE TIMES A DAY NEEDED FOR MUSCLE SPASMS 02/07 completed Not Available Not Available Not Available nystatin 100,000 unit/mL oral suspensio n TAKE 5 ML BY MOUTH 4 TIMES DAILY FOR 10 DAYS active Not Available Not Available No t Available meloxicam 15 mg tablet Take one tablet by mouth once daily if needed for post surgical pain. 06/22 completed Not Available Not Available Not Available lisinopri l 20 mg tablet TAKE 1 TABLET BY MOUTH ONCE DAILY 08/09 completed Not Available Not Available Not Available prednison e 20 mg tablet TAKE 2 TABLETS BY MOUTH EVERY DAY FOR 5 DAYS 12/26 completed Not Available Not Available Not Available alclometa sone 0.05 % topical cream PLEASE SEE ATTACHED FOR DETAILED DIRECTIO NS 02/07 completed Not Available Not Available Not Available amlodipin e 2.5 mg tablet Take 1 tablet by mouth once daily for 30 days 11/21 completed Not Available Not Available Not Available metronida zole 500 mg tablet TAKE 1 TABLET BY MOUTH EVERY 8 HOURS FOR 7 DAYS 08/01 completed Not Available Not Available Not Available amlodipin e 5 mg tablet Take 1 tablet every day by oral route for 90 days. 05/29 completed Not Available Not Available Not Available amoxicill in 875 mg tablet TAKE 1 TABLET BY MOUTH EVERY 12 HOURS FOR 7 DAYS 10/17 completed Not Available Not Available Not Available prednisol one acetate 1 % eye drops,roselia pension INSTILL 1 DROP 4 TIMES DAILY INTO AFFECTED EYE BEGINNIN G AFTER LASER USE FOR 4 DAYS AFTER LASER PROCEDUR E THEN DISCONTI NUE 11/21 completed Not Available Not Available Not Available aspirin 325 mg tablet,de layed release Take 1 tablet every 12 hours by oral route for 15 days. 06/22 completed Not Available Not Available Not Available Valium 5 mg tablet Take 1 tablet every 8 hours by oral route. 11/21 completed Started by jone chaney see 06.05.23 D/C Not Available Not Available Not Available amlodipin e 10 mg tablet TAKE 1 TABLET BY MOUTH ONCE DAILY active Not Available Not Available No t Available cephalexi n 500 mg capsule TAKE 1 CAPSULE BY MOUTH 4 TIMES DAILY FOR 7 DAYS 08/01 completed Not Available Not Available Not Available pantopraz ole 40 mg tablet,de layed release 11/21 completed Not Available Not Available Not Available simvastat in 20 mg tablet TAKE 1 TABLET BY MOUTH ONCE DAILY AT BEDTIME active Not Available Not Available No t Available metronida zole 0.75 % topical cream APPLY THIN LAYER 2 TIMES A DAY TO FACE FOR ROSACEA 02/07 completed Not Available Not Available Not Available diclofena c sodium 75 mg tablet,de layed release 11/21 completed Not Available Not Available Not Available mupirocin 2 % topical ointment APPLY A SMALL AMOUNT OF OINTMENT TOPICALL Y TO THE AFFECTED AREA 3 TIMES DAILY FOR 5 DAYS active Not Available Not Available No t Available gabapenti n 100 mg capsule Take one capsule by mouth every 8 hours if needed for post surgical pain. 06/22 completed Not Available Not Available Not Available lotepredn ol etabonate 0.5 % eye drops,roselia pension INSTILL 1 DROP INTO BOTH EYES TWICE A DAY FOR 3 WEEKS THEN STOP 02/07 completed Not Available Not Available Not Available ibuprofen 600 mg tablet active Not Available Not Available Not Available methylpre dnisolone 4 mg tablets in a dose pack TAKE 6 TABLETS ON DAY 1 DIRECTED ON PACKAGE AND DECREASE BY 1 TAB EACH DAY FOR A TOTAL OF 6 DAYS 11/21 completed Not Available Not Available Not Available albuterol sulfate HFA 90 mcg/actua tion aerosol inhaler INHALE 2 PUFFS EVERY 6 HOURS 02/07 completed Not Available Not Available Not Available doxycycli ne hyclate 20 mg tablet TAKE 1 TABLET TWICE A DAY. TAKE WITH FOOD. AVOID CALCIUM. MAY CAUSE SUN SENSITIV ITY 12/26 completed Not Available Not Available Not Available lisinopri l 40 mg tablet TAKE 1 TABLET BY MOUTH ONCE DAILY active Not Available Not Available No t Available sertralin e 50 mg tablet TAKE 1 TABLET BY MOUTH ONCE DAILY active Not Available Not Available No t Available oxycodone 5 mg tablet Take 1 tablet every 4 hours by oral route. 08/01 completed started by jone chaney Not Available Not Available Not Available azelaic acid 15 % topical gel APPLY IN IN THE EVENING TO FACE FOR ROSACEA 02/07 completed Not Available Not Available Not Available Restasis 0.05 % eye drops in a dropperet te INSTILL 1 DROP INTO BOTH EYES TWICE A DAY 02/07 completed Not Available Not Available Not Available chlorhexi dine gluconate 0.12 % mouthwash USE 15 ML DIRECTED TWICE A DAY RINSE AND EXPECTOR ATE 02/07 completed Not Available Not Available Not Available Calcium 600 active Not Available Not Available Not Available doxycycli ne hyclate 12/26 completed Not Available Not Available Not Available Stool Softener active Not Available Not Available Not Available Vitamin D3 active Not Available Not Available Not Available B12 active Not Available Not Availa ble Not Available Prolia 60 mg/mL subcutane ous syringe Inject 1 mL as needed by subcutan eous route for 180 days. 2024 active Not Available Not Available Not Avai lable Arnuity Ellipta 100 mcg/actua tion powder for inhalatio n INHALE 1 PUFF BY MOUTH ONCE DAILY active Not Available Not Available No t Available Shingrix (PF) 50 mcg/0.5 mL intramusc ular suspensio n, kit PHARMACY ADMINIST ERED 12/26 completed Not Available Not Available Not Available Mounjaro 2.5 mg/0.5 mL subcutane ous pen injector Inject 0.5 mL every week by subcutan eous route. 2023 active Not Available Not Available Not Avai lable Vitals Date Recorded Body height Body mass index (BMI) Body weight Heart rate Oxygen saturation Oxygen saturation in Arterial blood by Pulse oximetry Systolic blood pressure Diastolic blood pressure Provider Name and Address Organization Details Last Updated DateTime 4 154.94 cm 36.7 kg/m2 10625.9 2 g 56 /min 99 % 99 % 138 mm[Hg] 72 mm[Hg] Tiffanie Alanis [facility] 4 10:39:05 Date Recorded Body height Body mass index (BMI) Body weight Systolic blood pressure Diastolic blood pressure Provider Name and Address Organization Details Last Updated DateTime 08/28/2024 154.94 cm 37.6 kg/m2 30799.88 g 104 mm[Hg] 70 mm[Hg] Tiffanie Alanis [facility] 5 08:59:51 Date Recorded Body height Body mass index (BMI) Body weight Heart rate Oxygen saturation Oxygen saturation in Arterial blood by Pulse oximetry Systolic blood pressure Diastolic blood pressure Provider Name and Address Organization Details Last Updated DateTime 5 154.94 cm 37.6 kg/m2 18372.8 8 g 73 /min 97 % 97 % 120 mm[Hg] 70 mm[Hg] Tiffanie Alanis [facility] 5 12:10:24 Date Recorded Body height Body mass index (BMI) Body weight Heart rate Oxygen saturation Oxygen saturation in Arterial blood by Pulse oximetry Systolic blood pressure Diastolic blood pressure Provider Name and Address Organization Details Last Updated DateTime 5 154.94 cm 38 kg/m2 42331.0 7 g 57 /min 96 % 96 % 122 mm[Hg] 60 mm[Hg] Sam Ng [facility] 5 16:05:15 Social History Question Answer Notes LastModified by Organization Details LastModified Time Tobacco Smoking Status Former Smoker Radha Troy, DO [address] [place], [address], [facility] 05/16/2024 13:58:22 Do You Have An Advance Directive? Yes Son- Maureen Plascencia Information not available 05/16/2024 Is Blood Transfusion Acceptable In An Emergency? Yes Information not available 02/07/2023 What Is Your Level Of Caffeine Consumption? Moderate 1 A Day And Diet Coke Information not available 05/16/2024 What Is Your Code Status? Full Code Information not available 02/07/2023 What Type Of Diet Are You Following? REGULAR [email or web address] Information not available 12/26/2022 What Is The Highest Grade Or Level Of School You Have Completed Or The Highest Degree You Have Received? [id number] [employer] [facility] Information not available 05/16/2024 When Did You Quit Smoking? 11-15yearssincelas tcigarette [email or web address] Information not available 12/26/2022 Are There Any Guns Present In Your Home? No Information not available 02/07/2023 Which Of Your Hands Is Dominant? Right Information not available 02/07/2023 Where Do You Live? SingleLevelHouse Lives Alone [email or web address] Information not available 12/26/2022 Tobacco Use (smoking, Smokeless Tobacco) No [email or web address] Information not available 05/16/2024 Date Of Tobacco Screen 05/16/2024 [email or web address] Information not available 05/16/2024 What Was The Date Of Your Most Recent Tobacco Screening? 05/16/2024 [email or web address] Information not available 05/16/2024 How Many Children Do You Have? 4 Three Sons One Daughter [email or web address] Information not available 02/07/2023 What Is Your Current Pack Years? [email or web address] Information not available 05/16/2024 Have You Ever Been Counseled For Unhealthy Alcohol Use? No Information not available 02/07/2023 Do You Have Any Pets? No Information not available 02/07/2023 What Is Your Relationship Status? Since 2018, [place] From [facility] [email or web address] Information not available 02/07/2023 Do You Use Your Seat Belt Or Car Seat Routinely? Yes Information not available 02/07/2023 Are You Sexually Active? No Information not available 12/26/2022 Do You Have Smoke And Carbon Monoxide Detectors In Your Home? Yes Information not available 02/07/2023 At What Age Did You Start Smoking Tobacco? 18 Information not available 05/16/2024 Are There Any Smokers In Your House? No Information not available 02/07/2023 How Much Tobacco Do You Smoke? No Information not available 05/16/2024 How Many Years Have You Smoked Tobacco? 30 Information not available 05/16/2024 Sex: Female Functional Status Question Answer Note LastModified by Organizat ion Details LastModified Time Do you use any illicit or recreational drugs? No [email or web address] Information not available 12/26/2022 Do you or have you ever used any other forms of tobacco or nicotine? No Information not available 05/16/2024 What is your level of alcohol consumption? Occasional 2 times a year Information not available 02/07/2023 Are you currently employed? No retired [email or web address] Information not available 12/26/2022 What is your exercise level? Moderate walks in the morning- 2 miles or working in the yard Information not available 05/16/2024 Mental Status None recorded. Family History Relationship Description Onset Age of this Age Resolved Age Notes LastModified by Organization Details LastModified Time Mother Coronary arterioscler osis [email or web address] Not available 12/26 15:34:29 Brother Coronary artery bypass graft Quadru ple bypass , AV replac e Not available 02/07/2023 11:19:35 Brother Diabetes mellitus Not available 02/07 11:03:08 Brother Diabetes mellitus [email or web address] Not available 02/07 11:03:08 Brother Malignant tumor of pharynx [email or web address] Not available 02/07 11:03:35 Brother Coronary artery bypass graft triple bypass , Not available 02/07/2023 11:19:18 Brother Coronary artery bypass graft triple bypass , AV replac ement Not available 02/07/2023 11:19:58 Sister Malignant tumor of breast [email or web address] Not available 12/26 15:35:19 Sister Atrial fibrillation [email or web address] Not available 11:03:15 Maternal Grandmother Malignant tumor of pharynx [email or web address] Not available 02/07 11:03:27 Maternal Grandfather Malignant neoplasm of lung [email or web address] Not available 02/07 11:03:48 Paternal Grandmother Acute stroke [email or web address] Not availabl e 02/07/2023 11:04:07 Paternal Grandfather Cerebral hemorrhage from this [email or web address] Not available 02/07/2023 11:04:32 Notes:two brothers w/ major heart surgeries Medical History No medical history recorded. Gynecological History Statement/Question Response 4 Gynecologic procedures/surgery yes Date of Last Mammogram 03/11/2024 Term births 4 Living children 4 Hysterectomy abdominal Para 4 Last bone density 11/28/2022 Obstetrics History GPAL:G 4 P 4 0 0 4 Type Value Full Term 4 Living 4 Total 4 Immunizations Vaccine Type Date Status Note Provider Nam e and Address Organization Details Recorded Time zoster recombinant 1 completed Tiffanie Rahaim, CCMA null, [facility] 02/07/2023 10:53:28 zoster recombinant 0 completed Tiffanie Rahaim, CCMA null, [facility] 02/07/2023 10:53:28 Influenza, high-dose, quadrivalent, PF 1 completed Tiffanie Rahaim, CCMA null, [facility] 02/07/2023 10:53:28 Influenza, high-dose, quadrivalent, PF 2 completed Tiffanie Rahaim, CCMA null, [facility] 02/07/2023 10:53:28 COVID-19, mRNA, LNP-S, PF, 100 mcg/0.5mL dose or 50 mcg/0.25mL dose 1 completed Tiffanie Rahaim, CCMA null, [facility] 02/07/2023 10:53:28 COVID-19, mRNA, LNP-S, PF, 100 mcg/0.5mL dose or 50 mcg/0.25mL dose 1 completed Tiffanie Rahaim, CCMA null, [facility] 02/07/2023 10:53:28 COVID-19, mRNA, LNP-S, PF, 100 mcg/0.5mL dose or 50 mcg/0.25mL dose 2 completed Tiffanie Rahaim, CCMA null, [facility] 02/07/2023 10:53:28 COVID-19, mRNA, LNP-S, PF, 100 mcg/0.5mL dose or 50 mcg/0.25mL dose 1 completed Tiffanie Rahaim, CCMA null, [facility] 02/07/2023 10:53:28 COVID-19, mRNA, LNP-S, bivalent, PF, 30 mcg/0.3 mL dose 2 completed Tiffanie haim CCMA null, [facility] 02/07/2023 10:53:28 pneumococcal polysaccharide PPV23 9 completed Tiffanei Rahaim CCMA null, [facility] 02/07/2023 10:53:28 Tdap 1 [facility] 10:53:28 Influenza, split virus, trivalent, preservative 0 completed [facility] 02/07/2023 10:53:28 Influenza, split virus, trivalent, preservative 9 completed [facility] 02/07/2023 10:53:28 Influenza, high-dose, quadrivalent, PF 3 [facility]23 10:26:49 RSV, recombinant, protein subunit RSVpreF, adjuvant reconstituted, 0.5 mL, PF 3 [facility]/13/2023 10:26:49 COVID-19, mRNA, LNP-S, PF, 50 mcg/0.5 mL 3 [facility]/13/2023 10:26:49 COVID-19, mRNA, LNP-S, PF, 50 mcg/0.5 mL 4 completed Radha DiVbritney, DO [address] [place], [address], [facility] 05/16/2024 13:52:38 Influenza, high-dose, trivalent, PF 4 completed Radha DiVito, DO [address] [place], [address], [facility] 05/16/2024 13:52:38 Past Encounters Encounter ID Performer Location Encounter Start Date Encounter Closed Date Diagnosis/Indication Diagnosis SNOMED-CT Code Diagnosis ICD10 Code Diagnosis Note [id number] HANH HUGHES [facility] [address], [address] [place] [address] 03/24/2020 09:27:47 03/24/2020 10:19:04 Osteoarthritis of right knee joint [id number] 24033 M17.11 see above Tear of la teral meniscus of knee [id number] S83.281A 69-year-ol d retired female presents today with right lateral knee pain since tripping in her basement and falling on her right knee roughly 3 months ago. Patient's pain has not improved or worsened over the past few months. Patient's knee pops often and feels like it wants to give. Patient had a MRI on 02-06-20 which demonstrat es a fairly significan t lateral meniscal tear and osteoarthr itis. On exam, there is no effusion or ecchymosis . Patient has positive lateral joint line tenderness . Patient has a positive Jesus test. Patient has no overt laxity. Patient has full range of motion with pain at extremes of motion. I reviewed MRI findings with Dr. Rucker who agreed to perform an arthroscop y. I discussed with patient that she does have underlying osteoarthr itis along with a meniscal tear. She knows that an arthroscop y may not improve all of her pain as she does have underlying osteoarthr itis. Patient agrees to proceed forward with an arthroscop y which will be scheduled for later this week. [id number] West Rucker MD Orthopedi [address] [place] [address] 04/14/2020 08:49:43 04/14/2020 09:40:22 [id number] MD Stephanie Peacockedi [address], [address] [place] [address] 05/17/2020 07:44:55 05/17/2020 08:40:48 Pain in right knee [id number] M25.561 Patient likely has some postoperat francine-relate d knee swelling, she is mostly experienci ng around the fat pad. Reviewed intra-frederick cular findings, her level relative activities despite the fact that she is 69 usual. She is amenable to trying the injection today, risks benefits and expectatio ns were outlined. Will follow up with us on an as-needed basis. [id number] MD Stephanie Peacockedi [address], [address] [place] [address] 06/22/2020 15:39:48 06/22/2020 16:25:11 Pain in right knee [id number] M25.561 Patient being seen for postoperat francine follow-up has previously seen by Dr. Rucker was given injection to the right knee. She reports that she did have some improvemen t however she continues to experience increasing pain and swelling with activities . She has stopped physical therapy at this time. She had extensive arthroscop ic surgery performed on March 30, 2020. I recommend at this time that we perform aspiration however patient declines. I will give her a Medrol Dosepak and hope that this may reduce some of her ongoing swelling is most likely due to surgery. We reviewed her x-rays however which shows extensive osteoarthr itis. Most likely patient will be a candidate for total knee replacemen t in the future. Hopefully we can get her swelling down. She will follow-up in [facility] 2 1/2 weeks for repeat clinical exam. If appropriat e we may perform aspiration . Patient agrees with plan. Postoperative visit [id number] Z09 as above [id number] West Rucker MD Orthopedi [address], [address] [place] [address] 07/06/2020 11:02:17 07/06/2020 11:31:55 Pain in right knee [id number] M25.561 Patient being seen for postoperat francine follow-up has previously seen by Dr. Rucker was given injection to the right knee. She reports that she did have some improvemen t however she continues to experience increasing pain and swelling with activities . She has stopped physical therapy at this time. She had extensive arthroscop ic surgery performed on March 30, 2020. I recommend at this time that we perform aspiration however patient declines. I will give her a Medrol Dosepak and hope that this may reduce some of her ongoing swelling is most likely due to surgery. We reviewed her x-rays however which shows extensive osteoarthr itis. Most likely patient will be a candidate for total knee replacemen t in the future. Hopefully we can get her swelling down. She will follow-up in [facility] 2 1/2 weeks for repeat clinical exam. If appropriat e we may perform aspiration . Patient agrees with plan. July 06, 2020. Patient is now over three months post surgery. Continues to complain of right knee pain. She does demonstrat e excellent range of motion however she continues to complain of pain with weight-javier ring. I would like her to continue with physical therapy at this time. We Did , Medrol Dosepak would did here for some relief of discomfort however her pain returned shortly after ending the dose pack. At this time she will continue to go through physical therapy. Patient may be a candidate for knee replacemen t in the future. The did not appear to be any significan t swelling is there was previously . Patient will follow-up in one month. Patient agrees with plan. History of arthroscopy of knee joint [id number] Z98.890 as above [id number] West Rucker MD Orthopedi [address], [address] [place] [address] 08/19/2020 10:10:54 08/19/2020 10:38:45 Pain in right knee [id number] 44130 M25.561 Patient being seen for postoperat francine follow-up has previously seen by Dr. Rucker was given injection to the right knee. She reports that she did have some improvemen t however she continues to experience increasing pain and swelling with activities . She has stopped physical therapy at this time. She had extensive arthroscop ic surgery performed on March 30, 2020. I recommend at this time that we perform aspiration however patient declines. I will give her a Medrol Dosepak and hope that this may reduce some of her ongoing swelling is most likely due to surgery. We reviewed her x-rays however which shows extensive osteoarthr itis. Most likely patient will be a candidate for total knee replacemen t in the future. Hopefully we can get her swelling down. She will follow-up in [facility] 2 1/2 weeks for repeat clinical exam. If appropriat e we may perform aspiration . Patient agrees with plan. July 06, 2020. Patient is now over three months post surgery. Continues to complain of right knee pain. She does demonstrat e excellent range of motion however she continues to complain of pain with weight-javier ring. I would like her to continue with physical therapy at this time. We Did DrKira, Medrol Dosepak would did here for some relief of discomfort however her pain returned shortly after ending the dose pack. At this time she will continue to go through physical therapy. Patient may be a candidate for knee replacemen t in the future. The did not appear to be any significan t swelling is there was previously . Patient will follow-up in one month. Patient agrees with plan. Your 2020. Patient being seen for follow-up. Patient reports that she is doing very well. She continues to have some mild hand tenderness and swelling at the lateral compartmen t. However she is increasing her walking and stairclimb ing. She reports there is significan t decrease in pain. At this time she feels that she no longer needs to be seen in follow-up. [facility] She will be seen on an as-needed basis. Patient agrees with plan. History of arthroscopy of knee joint [id number] Z98.890 as above [id number] KARTIK SCHAFER [facility] [address] [place] [address] 11/21/2021 11:16:56 11/21/2021 11:51:33 Cough [id number] R05.9 Pt is a 70 yo female presenting with c/o cough x 1 + week.She is non toxic in appearance , NAD, and vitals are WNL.Exam is as noted.No sign of respirator y distress. She is sitting up right, speaking full sentences. Scattered wheezing and rhonchi noted on exam.She is already taking doxycyclin e.Consider viral bronchitis . Will treat with steroid burst.CXR with question of pneumonia. Advise repeat imaging with PCP for repeat imaging.Sh e is given strict ED precaution s with signs of respirator y distress, CP, fever 104+, fever that is unresponsi ve to medication s, inability to maintain intake.Due to symptoms, circumstan reyes COVID testing is pending.Ad vise PCP f/u with continued symptoms, further concerns. [id number] [facility] [address] [place] [address] 04/03/2022 12:17:58 04/03/2022 13:32:58 Pain of right knee joint [id number] 63980 M25.561 Very pleasant 71-year-ol d female being seen for complaint of right knee pain. She is also complainin g of left hip pain as well. Patient is an establishe d patient with a new complaint of right knee pain. She was seen in the past where she had arthroscop ic surgery performed by Dr. Rucker and as well as a cortisone injection was given postsurgic al. X-rays were obtained which do show some mild osteoarthr itis. There is significan t tenderness over the portal site of the lateral compartmen t. She otherwise demonstrat es good range of motion. There is crepitus noted with range of motion. She has negative Jesus's sign. There is no ligament laxity noted. We discussed a cortisone injection at this time. Patient acknowledg ed consent for cortisone injection to the right knee. Patient tolerated injection well. Patient to be seen on as-needed basis. Patient agrees with plan. [id number] [facility] [address] [place] [address] 07/20/2022 08:03:13 07/20/2022 08:45:25 Trochanteric bursitis of left hip [id number] 09182 M70.62 Very pleasant 71-year-ol d female complainin g of left hip pain. X-rays of the left hip were taken which did not show any overt fractures or bony abnormalit ies. She is tender over the greater trochanter . It was previously seen back in March when she was given a cortisone injection to the right knee with good resolve of pain. On physical exam she demonstrat es excellent internal and external rotation. She is tender over the greater trochanter . We discussed a cortisone injection. Patient acknowledg ed consent for cortisone injection to the left greater trochanter . Patient tolerated injection well. Patient to be seen on as-needed basis. Patient agrees with plan. [id number] [facility] [address] [facility] [address] [place] [address] 07/26/2022 10:23:57 07/26/2022 11:06:52 Closed fracture of proximal right humerus [id number] S42.201A This is a very pleasant 71-year-ol d female who is an establishe d patient with a new diagnosis. Patient reports falling on outstretch ed hand injuring her proximal humerus. Date of injury July 21, 2022. She being seen today for follow-up. X-rays were reviewed with the patient which shows a minimally displaced surgical neck fracture with was most likely greater tuberosity fracture. Patient is comfortabl e within the sling. There is significan t bruising. Range of motion was deferred at this time. Sensation is intact distally and extremity is well-perfu sed. She is comfortabl e on ibuprofen and Tylenol as needed. She was also applying ice. I would like to see her in follow-up in 2 weeks for repeat x-ray clinical exam. At that time most likely she will begin coming out of the sling to perform gentle active active assistive range of motion exercises. Patient will call if she needs anything else in the form of narcotic etc. Patient agrees with plan. [id number] [facility] [address] [facility] [address] [place] [address] 08/08/2022 08:41:14 08/08/2022 09:17:20 Closed fracture of proximal right humerus [id number] S42.201A This is a very pleasant 71-year-ol d female who is an establishe d patient with a new diagnosis. Patient reports falling on outstretch ed hand injuring her proximal humerus. Date of injury July 21, 2022. Patient presents today for follow-up. She had a recent CT which does show a impacted minimally displaced surgical neck fracture. Otherwise patient continues to do well. She is ready to discontinu e the use of the sling. She may begin discontinu ing the sling and perform gentle active range of motion exercises. She will continue to take Tylenol or ibuprofen as needed. I would like to see the patient in follow-up in 4 weeks. Patient will continue with gentle active range of motion exercises. Patient agrees with plan. [id number] [facility] [address] [place] [address] 09/06/2022 09:38:07 09/06/2022 10:24:10 Closed fracture of proximal right humerus [id number] S42.201A This is a very pleasant 71-year-ol d female who is an establishe d patient with a new diagnosis. Patient reports falling on outstretch ed hand injuring her proximal humerus. Date of injury July 21, 2022. Patient presents today for follow-up. She had a recent CT which does show a impacted minimally displaced surgical neck fracture. Otherwise patient continues to do well. She is ready to discontinu e the use of the sling. She may begin discontinu ing the sling and perform gentle active range of motion exercises. She will continue to take Tylenol or ibuprofen as needed. I would like to see the patient in follow-up in 4 weeks. Patient will continue with gentle active range of motion exercises. Patient has not returned from [facility] [place]. She is decreased the use of the sling and actually is no longer using it. She is otherwise feeling well she does demonstrat e good external rotation however she does not have sufficient strength to attain 90 degrees of flexion or abduction. Most likely she is suffering from a torn rotator cuff. X-rays were obtained which did not show any change in bony alignment and appears to be ongoing healing. We will obtain an MRI for further evaluation of the rotator cuff. If indeed there is a rotator cuff tear I will refer her to Dr. Ketan Rucker for evaluation and quite possible rotator cuff repair versus reverse total shoulder replacemen t. Patient agrees with plan. [id number] [facility] [employer] [facility] [address] [place] [address] 09/21/2022 07:19:00 09/21/2022 07:31:01 Closed fracture of proximal right humerus [id number] S42.201A This is a very pleasant 71-year-ol d female who is an establishe d patient with a new diagnosis. Patient reports falling on outstretch ed hand injuring her proximal humerus. Date of injury July 21, 2022. Patient presents today for follow-up. She had a recent CT which does show a impacted minimally displaced surgical neck fracture. Recently had an MRI obtained which showed no evidence of rotator cuff tear. There is a high-grade partial tearing of the bicep tendon. There is ongoing healing of the comminuted impacted proximal humerus fracture. Since MRI showed that there was no evidence of rotator cuff tear we will send the patient for course of physical therapy at [facility]. Patient may follow-up after she completes a course of physical therapy. Patient agrees with plan. [id number] [facility] [employer] [facility] [place] [address] [place] [address] 12/28/2022 07:57:32 12/28/2022 08:19:35 Trochanteric bursitis of left hip [id number] 94848 M70.62 Very pleasant 72-year-ol d female complainin g of left hip pain. X-rays of the left hip were taken which did not show any overt fractures or bony abnormalit ies. She is tender over the greater trochanter . Patient has had a previous cortisone injection was administer ed on July 20, 2022 for left trochanter ic bursitis. She did get good relief. She is now complainin g of increasing pain. She would like to have another cortisone injection. Once again patient was tender over the left greater trochanter . She demonstrat es good range of motion. Patient acknowledg ed consent for cortisone injection to the left hip. Patient tolerated injection well. Patient to follow-up on as-needed basis. Patient agrees with plan. [id number] Radha Troy DO [address] [address] 02/07/2023 10:49:05 02/07/2023 13:07:30 Hyperlipidemia 28222826 E78.5 Currently on simvastati n 20mg daily Hypertensive disorder 38 975153 I10 Currently taking lisinopril 20mg daily. Major depr essive disorder 713578129 F32.9 stableCurr ently taking sertraline 50mg daily. Patient ne w to provider [id number] 78808 Z76.89 Mammogram: 03/16/22pap and pelvic: hysterecto mycolonosc opy: 06/25/2020b one density: 11/28/22immu nization: 2nd pneumo; shingrix?s creening labs order:f/u 1 year Gastroesop hageal reflux disease 373638551 K21.9 stable off of medication Chronic insomnia 8378378 04 F51.04 Due to pain- will hold on medication Parathyroid adenoma 1284 28607 D35.1 Bilateral cataracts 9572 2003 H26.9 surgery last week- resolved Arthritis of left hip 10 57033521 119782 M13.852 Check X-rayfor severity Constipation 93873855 K5 9.00 controlled Cont colace and fiber Pain of hip region 90005 002 M25.559 Body mass index 30+ - obesity 293433410 Z68.37 Screening mammography 24 113814 Z12.31 Administra tion of pneumococcal vaccine 77622286 Z23 [id number] [facility] [place] [address] 02/22/2023 08:58:37 02/22/2023 09:59:22 Trochanteric bursitis of left hip [id number] 73010 M70.62 Very pleasant 72-year-ol d female complainin g of left hip pain. X-rays of the left hip were taken which did not show any overt fractures or bony abnormalit ies. She continues to continues with tenderness over the greater trochanter . She demonstrat es good internal/e xternal rotation of the hip. She has had 2 previous cortisone injections with some relief. We discussed a third cortisone injection. Patient notes consent for cortisone injection over the left greater trochanter . Patient tolerated injection well. Patient to be seen on as-needed basis. Patient agrees with plan. [id number] [facility] [address] [place] [address] 04/26/2023 10:21:07 04/26/2023 10:56:58 Pain of hip region 68020086 M25.559 Patient received a cortisone injection February 22, 2023 for left trochanter ic bursitis. Today the patient complains of groin pain. She also has tenderness on the lower back into the left buttock. X-rays were taken of the hip which did not show any osteoarthr itis with some calcificat ion at the greater trochanter . She is nontender over the greater trochanter . She also demonstrat es good range of motion in internal/e xternal rotation. At this time we will obtain an x-ray of the lower back. There appears to be evidence of degenerati ve changes on pelvic x-ray. I will discuss the results with the patient once I receive the x-rays. Patient was called and we reviewed the x-rays. There is substantia l amount of osteoarthr itis in the lower back. We will obtain an MRI for further evaluation . I do believe that mostly her hip pain is groin pain is probably due to her lumbosacra l osteoarthr itis. Patient agrees with plan. [id number] [facility] [address] [place] [address] 05/03/2023 10:59:58 05/03/2023 11:41:08 Low back pain 412963532 M54.50 This very pleasant 72-year-ol d female being seen for follow-up after obtaining an MRI of her lower back. Impression of the MRI shows moderate canal stenosis with crowding the traversing nerve roots seen in L2-L3.Mode rate foraminal stenosis seen at L3-L4 and severe left foraminal stenosis seen at L4-L5 with effacement of the left subarticul ar zone and medial displaceme nt of the left L5 traversing nerve root as described above. Moderate bilateral foraminal stenosis at L5-S1 as described. Patient acknowledg es results of the MRI. She can be referred to Dr. Way however patient has a back surgeon of her wound in [place]. She will schedule an appointmen t with this doctor as soon as possible. Patient agrees with plan. [id number] Radha DiVito, [address] [address] 07/13/2023 10:20:28 07/13/2023 11:49:38 Hypertensive disorder 04905184 I10 ElevatedIn crease lisinopril to 40mg po dailyf/u in 1 month Vaginal discharge 199648 006 N89.8 Probable BSsent Nu SwabStart flagyl 500mg po BID for & days Postoperat francine wound infection 34908558 T81.40XA much improvedCh diallo dressingwi ll order VNAMuch improved with antibiotic change- cont amoxicilli n 500mg po TID for 10daysChan ge dressing 2 times a day as long as not draining [id number] [facility] [place] [address] 08/01/2023 14:12:07 08/01/2023 16:36:12 Cellulitis 237468924 L03.90 Pt presents with concern for surgical site infectionV SS, lungs CTA b/l, in nad, slight erythema and ttp along edges of wound bed, no active dischargeg iven hx of surgical site infection, increased pain and slight erythema will start on amoxicilli n which she tolerated well in the past along with topical mupirocin. to keep area clean, dry, warning signs of when to go to ER discussed with patient who is in agreement with plan. [id number] Radha Troy[address] [address] 08/09/2023 09:01:57 08/09/2023 09:49:29 Postoperative wound infection 24298924 T81.40XA + central necrosis- wound not healingWil l need debridemen t of the surgical woundCalle d the surgical team and schedule appt for possible debridemen t on 08/14/23 at 9:30 [id number] [facility] [address] 10/18/2023 09:41:39 10/18/2023 10:12:28 Hypertensive disorder 20007613 I10 ElevatedIn crease lisinopril to 40mg po dailyamlod ipine 2.5mgf/u in 1 month Acute bronchitis 4596641 2 J20.9 dry cough that is not improvingt rial of Arnuityf/u if not improving Dry eyes 698388327 H04.1 23 Has new medication from [id number] Radha Troy [address] [address] 11/22/2023 13:59:07 11/22/2023 14:41:31 Hypertensive disorder 60927050 I10 ElevatedCo nt lisinopril to 40mg po dailyIncre ase amlodipine 5mgCheck BP once a weekf/u in 1 month with BP readings Major depr essive disorder 311447537 F32.9 Controlled Cont sertraline 50mg po dailyCont with counseling Chronic insomnia 5972907 04 F51.04 Due to pain- will hold on medication Gastroesop hageal reflux disease 026575713 K21.9 stable off of medication Hyperlipidemia 77221546 E78.5 controlled Cont with simvastati n 20 mg po dailylipid s 03/14/23 [id number] Radha Troy [address] [address] 05/16/2024 13:12:30 05/16/2024 16:27:10 Adult health examination 551364174 Z00.01 Patient should discuss medical decisions with [facility] Care Proxy. Recommende d screenings included colonoscop y screening age 45, earlier based on family history/ri sk factors; annual mammogram age 40, unless earlier based on risk factors and discussion with patient; bone density age 65, unless risk factors for earlier screening; one time screen for hepatitis C if born between 1660-8855 or has risk factors. Recommend annual low-dose CT scan screening for high-risk individual s ages 50 to 80 years with 20 pack-year history of smoking and current smoker or quit within past 15 years. Reviewed vaccines and current recommenda tions. Basic health topics include aerobic exercise, importance of healthy/ba lanced diet and minimizing caffeine and alcohol. Administra tion of pneumococcal vaccine 43053204 Z23 If PCV15 is used, this should be followed by a dose of PPSV23 one year later. The minimum interval is 8 weeks and can be considered in adults with an immunocomp romising condition, cochlear implant, or cerebrospi nal fluid leak. If PCV20 is used, a dose of PPSV23 is NOT indicated. Administra tion of diphtheria, pertussis, and tetanus vaccine 880005207 Z23 TDAP given 03/28/21 Screening mammography 24 549427 Z12.31 03/11/24- normal Screening for malignant neoplasm of colon 651449594 Z12.11 06/25/20- tunde Decreased estrogen level 502594609 E28.39 due now Viral screening 53463703 4 Z11.59 The USPSTF recommends one time screening for hepatitis C virus (HCV) infection in adults aged 18 to 79 years.04/23 12/13 Varicella vaccination 68 490971 Z23 05/24/20, 07/28/20 Smoking mo nitoring status 732412434 Z87.891 Recommend annual low-dose CT scan screening for high-risk individual s ages 50 to 80 years with 20 pack-year history of smoking and current smoker or quit within past 15 years. I have used a decision aid to share decision making with the patient about interventi ons to reduce the risk of dying from lung cancer, including quitting smoking and annual lung cancer screening. The patient is eligible for screening based on age, smoking history, and the absence of signs of symptoms of lung cancer. We discussed the potential harms of screening, including: false positives, follow-up diagnostic testing, overtreatm ent, and total radiation exposure. We provided the patient informatio n about the importance of adherence to annual LDCT screening, the impact of comorbidit ies, and the ability/wi llingness to undergo diagnosis and treatment. After considerin g the patient's unique circumstan reyes, and the pros and cons of the alternativ es, the patient has decided {{to be screened* not to be screened}} . Advance care planning 71 3199590 Z71.89 Son-Jorge Plascencia Influenza vaccine needed 0500815315 106 Z23 Patient recommende d to go to their local pharmacy to have influenza vaccine administer ed. Discussed importance of influenza vaccine due to the patient's risk of contractin g the disease. A handout was offered to enhance understand ing of the effects and side effects of the vaccine. Lumbar radiculopathy 128 666429 M54.16 Patient s/p laminectom y at L4-L5 on the left for severe NF narrowingP atient had post-op infectionh as not had strength in the lower extremity on the left 3/5 on examnever had follow up with surgeon post infection. Needs repeat MRI of the lumbar spine [id number] Radha Troy DO [address] [address] 07/02/2024 10:35:35 07/02/2024 11:15:32 Lumbar radiculopathy 415154076 M54.16 At, T11-12 ,L2-3, L4-5Patien t s/p laminectom y at L4-L5 on the left for severe NF narrowingP atient had post-op infection that has caused scar tissuehas not had strength in the lower extremity on the left 3/5 on examnever had follow up with surgeon post infection. MRI of lumbar spine done 06/03/24 wh showed scar tissue at the area Spinal tutu nosis of lumbar region 61632591 M48.061 at L2-3 secondary to disc protrusion which is moderate to severerefe rral to neurosurge ry [id number] Radha Troy [address] [address] 08/28/2024 08:51:07 08/28/2024 11:07:01 Senile osteoporosis 35571732 M81.0 Cont with Calcium and vitamin Dweight bearing exerciseHa d been on fosamax in past for 10 years- 10 years sincestart prolia 60mg every 6 month [id number] [facility] [address] [address] 09/02/2024 09:07:51 09/02/2024 09:28:51 Senile osteoporosis 30656897 M81.0 Patient tolerated the first injection well, stayed in the office for 20 minutes without any adverse reactions. [id number] Radha Troy [address] [address] 10/16/2024 11:45:16 10/16/2024 13:59:35 Pain in throat 941421083 J02.9 ? 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 With flaresecon imchelle to stresschec k B12 and folatedisc ussed course of illness is usually self limited Health Concerns Section Related Observation LastModified by Organization Detai ls LastModified Time None Recorded Concern Status LastModified by Organization Details LastModified Time None Recorded Advance Directives Directive Y: Tien- Maureen Plascencia Payers Insurance Date Sequence Insurance Name Policy Number Policy Castellano Covered Member ID Castellano Member ID Guarantor Name 11/06/2024 1 MEDICARE B-[place]: [facility] [employer] Kiara Samayoa [id number] Kiara Samayoa 11/06/2024 2 [facility] IN[facility]MN[facility] - [facility] [id number] Kiara Samayoa [id number] Kiara Samayoa Notes Date Note Type Note Provider Name and Address Organization Details Recorded Time 07/02/2024 text/html 73 yo F presents for f/u on MRI results for lumbar spine done on 06/03/24. IMPRESSION:1. Right paracentral disc protrusions at T11-12 and L2-L3 with narrowing of lateral recesses at these levels.2. High-grade spinal stenosis L2-L3.3. Multilevel additional degenerative changes, as described above. Pt is agreeable to being referred to Dr. Barrera Thrasher out in [place] for spine surgery. Pt states pain mostly on R with weakness on L.Feels fine when sitting but pain when sitting up and standing.Reports hammertoe on R foot. Radha Troy, DO [address] [place] [address], [phone], [facility] 07/02/2024 16:29:40 08/28/2024 text/html 73 yo F presents for f/u on recent bone density scan done 08/18/24 showing osteoporosis. Pt has progressed from Osteopenia to Osteoporosis per bone density done 08/18.Pt has used Fosamax in the past but cannot recall how long it has been since she discontinued use.Another option would be Prolia. This would be a once every 6 month shot. Pt is agreeable. Also advised to keep up with calcium 600mg 2x daily and Vit D3 1x daily and continue with weight bearing exercises. Pt states her sister was dx with bone cancer in her spine. Pt was told by a Dr in [place] that she will not need a spinal effusion d/o not finding anything besides scare tissue. We have not received the report yet.Pt reports they found something on her R lung and is waiting on an appt. EXAM: XR DEXA axial skeletonCLINICAL INDICATION: Decreased estrogen levelFINDINGS: Bone mineral density measured at the right femoral neck is 0.692 g/centimeters squared with a T score of -2.5. XR/XR DEXA axial skeletonIMPRESSION: Osteoporosis, based on World Health Organization criteria. Radha Troy DO [address] [place] [address], [phone], [facility] 08/28/2024 09:31:51 09/02/2024 text/html Patient presents in office today for her first Prolia injection Radha Troy DO [address] [place] [address], [phone], [facility] 09/03/2024 12:35:00 10/16/2024 text/html 73 yo F presents for c/o white tongue/canker sores. States symptoms have been going on for a few weeks now. She did try gargling salt water for a few days but there was no relief.+sore throatBeing tested for strep in office today. Negative Reports that she recently came back from visiting her sister and she may have caught something on the plane on the way back.Her sister has bone cancer. Has not been using her Arnuity Ellipta inhaler as she has been better. Advised she should restart this. C/o her leg hurting. She is going to make an appt withShe has been trying to walk everyday to help improve but it still hurts.Pt does do her stretches/exercises everyday. Radha Troy DO [address] [place] [address], [phone], [facility] 10/17/2024 16:38:13 11/06/2024 text/html 73 year old F pr esents with ongoing mouth pain. Pt has canker like sores on her tongue. States it is painful and swollen.She had come in 10/16 for sore throat and was given Nystatin oral but it has not resolved. She has had canker sores in the past.Pain is mostly at the tip of the tongue and around the tip.She does take B12 everyday. She does not want to try steroids.Pt has been taking care of her sister and is experiencing stress b/c of this. Sister is on chemo and is coming up next wk for her grandsons first communion. She will be staying with the pt. Radha Troy, DO [address] [place], [phone], [facility] 11/06/2024 16:46:54 OBGyn Episode Ob Episode Information Episode Created Date Number of Fetuses Patient Bloodtype Patient rh Status Prepregnancy Weight lbs Domestic Partner Domestic Partner Phone Father Name Physiatrist Status 02/08/20 1 CLOSED Fetus Data First Name Last Name Admitted to NICU Weight (g) Sex Living Outcome Pediatric Complications Fetus ID Race Codes Race Delivery Type M Full Term [id number] Vaginal ([id number]) Ruben Calculation Initial Ruben Date Initial Exam Date Initial Exam Provider Initial Ultrasound Date Last Menstrual Period Date Ultra Sound Weeks Gestation 0 Eighteen To Twenty Week Ruben Update Ultra Sound Date Fundal Height At Umbil Quickening Date Ultra Sound Latest Weeks Gestation Final Ruben Confirmed By Final Ruben Confirmed Date Final Ruben Date Ultra Sound Latest Days Gestation 0 0 Menstrual History Last Menstrual Date Menses Monthly On Bcp Conception Prior Menses Frequency Hcg Plus Date Menarche Onset Age Delivery Information Delivery Date Delivery Type Labor Anesthesia Weeks Gestation Incision Type Labor Labor Length Hrs Delivered By Post Complications Tubal Sterilization Discharge Date Comments 3 Discharge Information Feeding Method Contraceptive Method Maternal HG B and HCT Levels Ob Episode Information Episode Created Date Number of Fetuses Patient Bloodtype Patient rh Status Prepregnancy Weight lbs Domestic Partner Domestic Partner Phone Father Name Physiatrist Status 02/08/20 23 1 CLOSED Fetus Data First Name Last Name Admitted to NICU Weight (g) Sex Living Outcome Pediatric Complications Fetus ID Race Codes Race Delivery Type M Full Term [id number] Vaginal ([id number]) Ruben Calculation Initial Ruben Date Initial Exam Date Initial Exam Provider Initial Ultrasound Date Last Menstrual Period Date Ultra Sound Weeks Gestation 0 Eighteen To Twenty Week Ruben Update Ultra Sound Date Fundal Height At Umbil Quickening Date Ultra Sound Latest Weeks Gestation Final Ruben Confirmed By Final Ruben Confirmed Date Final Ruben Date Ultra Sound Latest Days Gestation 0 0 Menstrual History Last Menstrual Date Menses Monthly On Bcp Conception Prior Menses Frequency Hcg Plus Date Menarche Onset Age Delivery Information Delivery Date Delivery Type Labor Anesthesia Weeks Gestation Incision Type Labor Labor Length Hrs Delivered By Post Complications Tubal Sterilization Discharge Date Comments 7 Discharge Information Feeding Method Contraceptive Method Maternal HG B and HCT Levels Ob Episode Information Episode Created Date Number of Fetuses Patient Bloodtype Patient rh Status Prepregnancy Weight lbs Domestic Partner Domestic Partner Phone Father Name Physiatrist Status 02/08/20 23 1 CLOSED Fetus Data First Name Last Name Admitted to NICU Weight (g) Sex Living Outcome Pediatric Complications Fetus ID Race Codes Race Delivery Type M Full Term [id number] Vaginal ([id number]) Ruben Calculation Initial Ruben Date Initial Exam Date Initial Exam Provider Initial Ultrasound Date Last Menstrual Period Date Ultra Sound Weeks Gestation 0 Eighteen To Twenty Week Ruben Update Ultra Sound Date Fundal Height At Umbil Quickening Date Ultra Sound Latest Weeks Gestation Final Ruben Confirmed By Final Ruben Confirmed Date Final Ruben Date Ultra Sound Latest Days Gestation 0 0 Menstrual History Last Menstrual Date Menses Monthly On Bcp Conception Prior Menses Frequency Hcg Plus Date Menarche Onset Age Delivery Information Delivery Date Delivery Type Labor Anesthesia Weeks Gestation Incision Type Labor Labor Length Hrs Delivered By Post Complications Tubal Sterilization Discharge Date Comments 5 Discharge Information Feeding Method Contraceptive Method Maternal HG B and HCT Levels Ob Episode Information Episode Created Date Number of Fetuses Patient Bloodtype Patient rh Status Prepregnancy Weight lbs Domestic Partner Domestic Partner Phone Father Name Physiatrist Status 02/08/20 23 1 CLOSED Fetus Data First Name Last Name Admitted to NICU Weight (g) Sex Living Outcome Pediatric Complications Fetus ID Race Codes Race Delivery Type F Full Term [id number] Vaginal ([id number]) Ruben Calculation Initial Ruben Date Initial Exam Date Initial Exam Provider Initial Ultrasound Date Last Menstrual Period Date Ultra Sound Weeks Gestation 0 Eighteen To Twenty Week Ruben Update Ultra Sound Date Fundal Height At Umbil Quickening Date Ultra Sound Latest Weeks Gestation Final Ruben Confirmed By Final Ruben Confirmed Date Final Ruben Date Ultra Sound Latest Days Gestation 0 0 Menstrual History Last Menstrual Date Menses Monthly On Bcp Conception Prior Menses Frequency Hcg Plus Date Menarche Onset Age Delivery Information Delivery Date Delivery Type Labor Anesthesia Weeks Gestation Incision Type Labor Labor Length Hrs Delivered By Post Complications Tubal Sterilization Discharge Date Comments 8 Discharge Information Feeding Method Contraceptive Method Maternal HG B and HCT Levels
== END 2024-12-01 14:54 | disposition home or self-care (01) ==
LOC: HO.HNS 13:38
PROVIDERS: PCP Family Medicine; Visit Provider Physician Assistant
DX: R29.898 Other symptoms and signs involving the musculoskeletal system (principal); M54.16 Radiculopathy, lumbar region
CPT/HCPCS: 99213

== ENCOUNTER → 2024-12-01 13:38 | Outpatient (BNVA) | payer MEDICARE, OTHER, SELFPAY | PROVIDERS: PCP Family Medicine; Visit Provider Physician Assistant | DX: R29.898 Other symptoms and signs involving the musculoskeletal system (principal); M54.16 Radiculopathy, lumbar region | CPT/HCPCS: 99212 ==

== ENCOUNTER 2025-01-09 15:06 | Outpatient (AMB) | payer MEDICARE, OTHER, SELFPAY ==
--- OUTSIDE RECORDS SUMMARY | 2025-01-09 15:09 | XMS_ITS | Data Portability ---
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 Plan of Treatment Reminders Order Date Submit Date Provider Last Modified By Organization Details Last Modified Time Details Appointments PCP-Offic e Visit-15 Min 2024 08:45A M Radha DiVito, DO Not available Not available Not available PCP-Medic are Exam-30 Min 2024 09:00A M Radha DiVito, DO Not available Not available Not available Lab vitamin B12 + folate, serum or blood 2024 025 [facility], [address] [place], [address], 11/06/2024 22:07:15 rapid strep group A, throat 2024 025 In-Office Order, Internal Use Only DO Not Attach Compendium DO Not Attach Compendium, Do Not Delete/merge, [id number] 10/17/2024 16:38:09 25-hydrox yvitamin D2 + 25-hydrox yvitamin D3, QN, serum or plasma 2024 025 [facility], [address] [place], [address], 10/08/2024 15:21:37 Referral None recorded. Procedures None recorded. Surgeries None recorded. Imaging XR, shoulder, 2 or more view 2024 025 [facility] (Central Scheduling), [address] [place], [address], 12/19/2024 11:53:43 Medication Orders Topamax 50 mg tablet 2024 025 [facility], [address] [place], [address], 12/19/2024 09:53:34 naltrexon e 50 mg tablet 2024 025 [facility], [address] [place], [address], 12/19/2024 09:53:33 nystatin 100,000 unit/mL oral suspensio n 2024 025 [facility], [address] [place], [address], 12/19/2024 09:34:11 Prolia 60 mg/mL subcutane ous syringe 2024 025 Not available 09/03/2024 12:34:47 Prolia 60 mg/mL subcutane ous syringe 2024 025 [facility], [address] [place], [address], 08/28/2024 09:22:48 Patient TargetsNo targets recorded. Patient InstructionsNo instructions recorded. Reason for Referral None Reported. Results Created Date Observation Date Name Description Value Unit Range Abnormal Flag Note LastModifiedBy Organization Detail LastModifiedTime 10/09/1910/08/2024 VITAM IN D 25-OH TOTAL vitamin D 25-oh total 32.4 NG/mL Refer ence Range : Defic ient <20 ng/mL Insuf ficie nt 21-29 ng/mL Suffi cient >30 ng/mL Not Available [facility] Department [address] [place], [address] 10/08/2024 15:21:37 10/18/19 25 10/17/2024 rapid strep group A, throa t Results negati ve Not Available In-Office Order Internal Use Only DO Not Attach Compendium DO Not Attach Compendium, Do Not Delete/merge, [id number] 10/17/2024 16:36:17 11/07/19 25 11/06/2024 VITAM IN B12 AND FOLAT E vitamin B12 1748 pg/mL 232-12 45 high Not Available [facility] Laboratory Department [address] [place], [address] 11/06/2024 22:07:15 11/07/19 25 11/06/2024 VITAM IN B12 AND FOLAT E folate 10.2 NG/mL 4.8-18 .8 normal Marlene l: >5.9 ng/mL Inter media te: 4.0-5 .9 ng/mL Defic ient: <4.0 ng/mL Not Available [facility] Department [address] [place], [address] 11/06/2024 22:07:15 08/20/19 25 08/18/2024 [facility] [address] [place] [address] XRay Report Signed Sofía t: Kiara Samayoa MR#: [id number] : 1950 Acct:A [id number] Age/Se x: 73 / F ADM Date: Loc: GRETTA Cowan Attend ing Dr: Radha Troy DO Orderi ng Physic usha: Radha Troy DO Date of Servic e: Proced ure(s) : XR DEXA axial skelet on Access ion Number (s): [id number] H cc: Radha Troy DO EXAM: XR [...] 933 TD/TT: 933 Transc riptio nist: [email or web address] [facility] [address] [facility] [place], [address], 08/25/2024 08:52:08 08/21/19 25 07/11/2024 XR, cervi mily spine No observ ation record ed. [email or web address] [facility] [address] [place], [address], 08/25/2024 12:22:55 08/22/19 25 08/18/2024 bone densi ty No observ ation record ed. [email or web address] Not Available 2024 08:52:09 10/04/19 25 10/03/2024 CT, chest , w/o contr ast [facility] [address] [place] [address] CT Scan Report Signed Sofía t: Kiara Samayoa MR#: [id number] : 1950 Acct:A [id number] Age/Se x: 73 / F ADM Date: Loc: HE.ACT Attend ing Dr: Radha Troy DO Orderi ng Physic usha: Radha Troy DO Date of Servic e: Proced ure(s) : CT chest wo IV con Access ion Number (s): [id number] H cc: Radha Troy DO Proced ure: [...] C5-T1 levels Electr onical ly Signed in Aragon cribe By Greg Leon MD 045 CT/CT chest [...] months . Electr onical ly Signed By: Grge Leon MD On: 1502 Dictat ed By: Greg Leon MD 1430 Signed By: Greg Leon MD [address] Radiology Department [address] [place], [address], 10/08/2024 11:32:39 12/20/19 25 12/19/2024 XR, shoul collins, 2 or more view [facility] [address] [facility] [place] [address] XRay Report Signed Sofía t: Kiara Samayoa MR#: [id number] : 1950 Acct:H [id number] Age/Se x: 74 / F ADM Date: Loc: HE.RAD Attend ing Dr: Radha Troy DO Orderi ng Physic usha: Radha Troy DO Date of Servic e: Proced ure(s) : XR should er LT min 2V Access ion Number (s): [id number] H cc: Radha Troy DO Reason for exam (per EHR order) : Acute pain of left should er TECHNI QUE: XR should er LT min 2V COMPAR ANOOP: None. FINDIN GS: Alignm ent is intact , withou t acute fractu re or disloc ation. Preser silvia glenoh umeral cartil age space. Acromi oclavi cular joint is intact . 024 XR/XR should er LT min 2V IMPRES RICHARD: No acute fractu re or disloc ation of the left should er. Electr onical ly Signed By: Nixon Longo MD On: 1151 Dictat ed By: Nixon Longo MD 1025 Signed By: Nixon Longo MD 1151 [facility] [address] [place] [address], [address], 12/30/2024 09:12:02 Result Notes Documentation Provider Name and Address Organization Details Recorded Time Ct, Chest, W/o Contrast : [address] [address] [address] Scan Report Signed Patient: Kiara Samayoa MR#: [id number] : 1950 Acct:[id number] Age/Sex: 73 / F ADM Date: 10/03/24 Loc: HE.ACT Attending Dr: Radha Troy DO Ordering Physician: Radha Troy DO Date of Service: 10/03/24 Procedure(s): CT chest wo IV con Accession Number(s): [id number] cc: Radha Troy DO Procedure: CT chest wo IV con 10/03/2024 2:30 PM Indications: 73 years old asymptomatic Female with a history of cigarette smoking meeting NCCN high-risk criteria for lung screening. SCREENING VISIT: Annual. COMPARISON: 07/05/2024 TECHNIQUE: Low dose CT of the chest was performed from the apices through the diaphragms without intravenous contrast. Automated exposure control techniques were used. Sagittal, coronal and axial MIP reformatted images were performed. LOW DOSE CT LUNG CANCER SCREENING FINDINGS: Lung Screening Specific (Lung-RADS): The previously seen right lower lobe subpleural nodule measuring 10 mm measures 8 mm on the current exam. Potentially Significant Incidentals: Mild coronary artery calcification Pulmonary Incidentals: Stable right middle lobe scar abutting the pleura (8:84). Other Incidentals: Stable degenerative changes of the spine. Stable orthopedic hardware at the C5-T1 levels Electronically Signed in PowerScribe By Greg Leon MD CT/CT chest wo IV con IMPRESSION: 1. Right lower lobe nodule stable or diminished in size compared to the prior study. 2. No significant incidental findings. Lung-RADS 2: Benign appearance or behavior (includes screening exams with nodules having a very low likelihood of becoming a clinically active cancer due to nodule size or lack of nodule growth). RECOMMENDATIONS: Continue annual LDCT lung screening in 12 months. Electronically Signed By: Greg Leon MD On: 10/03/24 1502 Dictated By: Greg Leon MD 10/03/24 1430 Signed By: Greg Leon MD 10/03/24 1502 IDRIS Avery [facility] 10/08/2024 11:32:39 Xr, Shoulder, 2 Or More View : [address] [address] XRay Report Signed Patient: Kiara Samayoa MR#: [id number] : 1950 Acct:[id number] Age/Sex: 74 / F ADM Date: 12/19/24 Loc: [facility] Attending Dr: Radha Troy DO Ordering Physician: Radha Troy DO Date of Service: 12/19/24 Procedure(s): XR shoulder LT min 2V Accession Number(s): [id number] cc: Radha Troy DO Reason for exam (per EHR order): Acute pain of left shoulder TECHNIQUE: XR shoulder LT min 2V COMPARISON: None. FINDINGS: Alignment is intact, without acute fracture or dislocation. Preserved glenohumeral cartilage space. Acromioclavicular joint is intact. XR/XR shoulder LT min 2V IMPRESSION: No acute fracture or dislocation of the left shoulder. Electronically Signed By: Nxion Longo MD On: 12/19/24 1151 Dictated By: Nixon Longo MD 12/19/24 1025 Signed By: Nixon Longo MD 12/19/24 1151 Radha Troy, [address], [address], [facility] 12/30/2024 09:12:02 Problems Name Problem SNOMED Code Status Onset Date Resolution Date Notes Provider Name and Address Organization Details Recorded Time Fracture of bone of head 877905982 Active 2022 communite d impacted humeral head and neck fracture. Tiffanie Alanis CCMA zeinab, [facility] 3 15:21:51 Major depressiv e disorder 414162901 Active 2022 Radha Zhaomary [facility], [address], [address], [facility] 3 11:10:29 Gastroeso phageal reflux disease 265593100 Active 2022 Tiffanie Alanis CCMA null, [facility] 3 15:25:46 Hyperlipi demia 97473636 Active 2022 Tiffanie Alanis CCMA null, [facility] 3 15:25:55 Hypertens francine disorder 23083084 Active 2022 Tiffanie Alanis CCMA null, [facility] 3 15:26:04 Parathyro id adenoma 511047032 Active 2022 removed 3 AND LEFT 1 Radha DiVito, [address], [address], [facility] 3 11:15:04 Bilateral cataracts 05828927 Active 2022 Tiffanie Alanis CCMA null, [facility] 3 15:39:18 Arthritis of left hip 097321050606 9105 Active 2022 Tiffanie RaaustenIDRIS armijo, [facility] 3 15:51:58 Chronic insomnia 247846251 Active 2022 Tiffanie RaaustenIDRIS armijo, [facility] 3 15:52:18 Constipat ion 07489201 Active 2022 Radha Troy [address] [place], [address], [facility] 3 11:28:18 Problem Notes None recorded. Procedures Surgical History Date Name Laterality Status Provider Name and Address Organization Details Recorded Time Mini-Mental State Exam (MMSE) completed Radha Troy DO [address] [place] [address] [place], [address], [facility] 05/16/2024 14:20:57 024 Instrumental Activities of Daily Living completed Radha Troy DO [address] [place] [address] [place], [address], [facility] 05/16/2024 14:20:57 024 Activities of Daily Living Scale completed Radha Troy DO [address] [place] [address] [place], [address], [facility] 05/16/2024 14:20:57 024 Date of Last Mammogram completed IDRIS Avery [facility] 03/13/2024 11:31:34 023 operative procedure on spinal structure completed Adeel Samayoa MA [facility] 07/13/2023 10:35:26 023 Corticosteroid Injection - HIP completed HANH EM [facility] [place], [address], [facility] 02/22/2023 10:33:54 023 Corticosteroid Injection - HIP [facility] [place] [address], [facility] 01/04/2023 07:29:06 022 Corticosteroid Injection - HIP completed HANH EM [address] [facility], [place], [address], [facility] 07/20/2022 08:37:19 022 Cataract Surgery completed Tiffanie Ramira, [facility] 12/26/2022 15:54:37 022 Cataract Surgery completed Tiffanie Rahai, [facility] 12/26/2022 15:54:17 022 Corticosteroid Injection - KNEE completed HANH EM [address] [facility], [place], [address], [facility] 04/03/2022 13:39:41 colonoscopy completed Tiffanie Ramira, [facility] 12/26/2022 15:27:46 020 Corticosteroid Injection - KNEE completed Laura Remy [facility] 05/17/2020 08:29:35 020 Knee arthroscopy/surgery completed Junito Thrasher [facility] 04/06/2020 08:00:30 [facility]2022 15:29:05 parathyroidectomy [facility]/26/2022 15:29:54 procedure on spine completed Mikeytli n Rahai [facility] 12/26/2022 15:30:59 procedure on knee completed Tiffanie Rahaim, [facility] 12/26/2022 15:31:05 Breast reduction [facility]/26/2022 15:31:12 Imaging Results None recorded. Procedure Notes None recorded. Medical Equipment None Reported. Allergies Allergen ID Allergen Name Allergen Category Reaction Reaction Severity Criticality Documentation Date Start Date Code Code System Note Provider Name and Address Organization Details Recorded Time [id number] pholcodin e Not available Not available Not available Not available 11/21/2021 53712 RxNorm Aurora McGuirk null, [facility] 2 11:33:47 444183 sulfadiaz ine medicatio n Not available Not available Not available 11/21/2021 07720 RxNorm Aurora McGuirk null, [facility] 2 11:34:09 589545 sulfameth izole Not available Not available Not available Not available 11/21/2021 65327 RxNorm Aurora McGuirk null, [facility] 2 11:34:30 779462 morphine medicatio n Not available Not available Not available 11/21/2021 7052 RxNorm Aurora McGuirk null, [facility] 2 11:34:37 307660 carisopro dol medicatio n Not available Not available Not available 11/21/2021 2101 RxNorm Aurora McGuirk null, [facility] 2 11:34:46 405272 Paxil medicatio n Not available Not available Not available 11/21/2021 73760 8 RxNorm Aurora McGuirk null, [facility] 2 11:34:52 061650 Ultram medicatio n Not available Not available Not available 11/21/2021 10615 6 RxNorm Aurora McGuirk null, [facility] 2 11:35:00 284097 Relafen medicatio n Not available Not available Not available 11/21/2021 44067 4 RxNorm Aurora McGuirk null, [facility] 2 11:35:11 756908 Vioxx medicatio n Not available Not available Not available 11/21/2021 60262 9 RxNorm Aurora McGuirk null, [facility] 2 11:35:22 522399 Lyrica medicatio n Not available Not available Not available 11/21/2021 25387 1 RxNorm Aurora McGuirk null, [facility] 2 11:35:47 Medications Name Sig Start Date Stop Date Status Note LastModified by Organization Details LastModified Time cyclobenz aprine 10 mg tablet TAKE 1 TABLET BY MOUTH THREE TIMES A DAY NEEDED FOR MUSCLE SPASMS 02/07 completed Not Available Not Available Not Available nystatin 100,000 unit/mL oral suspensio n TAKE 5 ML BY MOUTH 4 TIMES DAILY FOR 10 DAYS 12/19 completed Not Available Not Available Not Available meloxicam 15 mg tablet Take one tablet by mouth once daily if needed for post surgical pain. 06/22 completed Not Available Not Available Not Available naltrexon e 50 mg tablet TAKE 1/2 (ONE-SYLVIA F) TABLET BY MOUTH ONCE DAILY FOR 90 DAYS active Not Available Not Available No t Available lisinopri l 20 mg tablet TAKE [...] 11/21 completed Started by jone chaney see 11.14.23 D/C Not Available Not Available Not Available [...] t Available sertralin e 50 mg tablet Take 1 tablet by mouth once daily 2024 active Not Available Not Available Not Avai lable oxycodone 5 mg tablet Take 1 tablet [...] completed Not Available Not Available Not Available topiramat e 50 mg tablet TAKE 1 TABLET BY MOUTH TWICE DAILY active Not Available Not Available No t Available chlorhexi dine gluconate 0.12 % mouthwash [...] Updated DateTime 08/28/2024 154.94 cm 37.6 kg/m2 76262.88 g 104 mm[Hg] 70 mm[Hg] IDRIS Avery [facility] 08:59:51 Date Recorded Body height Body mass index (BMI) Body weight Heart rate Oxygen saturation Oxygen saturation in Arterial blood by Pulse oximetry Systolic blood pressure Diastolic blood pressure Provider Name and Address Organization Details Last Updated DateTime 5 154.94 cm 37.6 kg/m2 55117.8 8 g 73 /min 97 % 97 % 120 mm[Hg] 70 mm[Hg] Tiffanie Alanis [facility] 5 12:10:24 Date Recorded Body height Body mass index (BMI) Body weight Heart rate Oxygen saturation Oxygen saturation in Arterial blood by Pulse oximetry Systolic blood pressure Diastolic blood pressure Provider Name and Address Organization Details Last Updated DateTime 5 154.94 cm 38 kg/m2 18558.0 7 g 57 /min 96 % 96 % 122 mm[Hg] 60 mm[Hg] Sam Ng [facility] 5 16:05:15 Date Recorded Body height Body mass index (BMI) Body weight Oxygen saturation Oxygen saturation in Arterial blood by Pulse oximetry Heart rate Systolic blood pressure Diastolic blood pressure Provider Name and Address Organization Details Last Updated DateTime 5 154.94 cm 38.2 kg/m2 71149.0 6 g 98 % 98 % 58 /min 120 mm[Hg] 70 mm[Hg] Tiffanie Alanis [facility] 5 09:30:45 Social History Question Answer Notes LastModified by Organization Details LastModified Time Tobacco Smoking Status Former Smoker Radha Troy, DO [address] [place] [address], [address], [facility] 05/16/2024 13:58:22 Do You Have An Advance [...] Type Of Diet Are You Following? REGULAR [email or web address] Information not available 12/26/2022 What Is The Highest Grade Or Level Of School You Have Completed Or The Highest Degree You Have Received? [id number] [employer] [facility] Information not available 05/16/2024 When Did You Quit Smoking? 11-15yearssincelas mercyestelle [email or web address] Information not available 12/26/2022 Are There Any Guns Present In Your Home? No Information not available 02/07/2023 Which Of Your Hands Is Dominant? Right Information not available 02/07/2023 Where Do You Live? SingleLevelHouse Lives Alone [email or web address] Information not available 12/26/2022 Tobacco Use (smoking, Smokeless Tobacco) No [email or web address] Information not available 05/16/2024 Date Of Tobacco Screen 05/16/2024 Information not available 05/16/2024 What Was The Date Of Your Most Recent Tobacco Screening? 05/16/2024 [email or web address] Information not available 05/16/2024 How Many Children Do You Have? 4 Three Sons One Daughter [email or web address] Information not available 02/07/2023 What Is Your Current Pack Years? 30ormorepackyears Information not available 05/16/2024 Have You Ever Been Counseled For Unhealthy Alcohol Use? No Information not available 02/07/2023 Do You Have Any Pets? No Information not available 02/07/2023 What Is Your Relationship Status? Since 2018, [place] From [facility] [email or web address] Information not available 02/07/2023 Do You Use Your Seat Belt Or Car Seat Routinely? Yes Information not available 02/07/2023 Are You Sexually Active? No [email or web address] Information not available 12/26/2022 Do You Have [...] use any illicit or recreational drugs? No Information not available 12/26/2022 Do you or have you ever used any other forms of tobacco or nicotine? No Information not available 05/16/2024 What is your level of alcohol consumption? Occasional 2 times a year Information not available 02/07/2023 Are you currently employed? No retired [email or web address] Information not available 12/26/2022 What is your exercise level? Moderate walks in the morning- 2 miles or working in the yard Information not available 05/16/2024 Mental Status None recorded. Family History Relationship Description Onset Age of this Age Resolved Age Notes LastModified by Organization Details LastModified Time Mother Coronary arterioscler osis [email or web address] Not available 12/26 15:34:29 Brother Coronary artery bypass graft Quadru ple bypass , AV replac e Not available 02/07/2023 11:19:35 Brother Diabetes mellitus Not available 02/07 11:03:08 Brother Diabetes mellitus [email or web address] Not available 02/07 11:03:08 Brother Malignant tumor of pharynx [email or web address] Not available 02/07 11:03:35 Brother Coronary artery bypass graft triple bypass , Not available 02/07/2023 11:19:18 Brother Coronary artery bypass graft triple bypass , AV replac ement Not available 02/07/2023 11:19:58 Sister Malignant tumor of breast [email or web address] Not available 12/26 15:35:19 Sister Atrial fibrillation [email or web address] Not available 11:03:15 Maternal Grandmother Malignant tumor of pharynx [email or web address] Not available 02/07 11:03:27 Maternal Grandfather Malignant neoplasm of lung [email or web address] Not available 02/07 11:03:48 Paternal Grandmother Acute stroke [email or web address] Not availabl e 02/07/2023 11:04:07 Paternal Grandfather Cerebral hemorrhage from this Not available 02/07/2023 11:04:32 Notes:two brothers w/ [...] recombinant 1 completed Tiffanie Rahaim, CCMA null, [facility] 02/07/2023 10:53:28 zoster recombinant 0 [facility] 10:53:28 Influenza, high-dose, quadrivalent, PF 1 completed Tiffanie Rahaim, CCMA null, [facility] 02/07/2023 10:53:28 Influenza, high-dose, quadrivalent, PF 2 completed [facility] 02/07/2023 10:53:28 COVID-19, mRNA, LNP-S, PF, 100 mcg/0.5mL dose or 50 mcg/0.25mL dose 1 completed [facility] 02/07/2023 10:53:28 COVID-19, mRNA, LNP-S, PF, 100 mcg/0.5mL dose or 50 mcg/0.25mL dose 1 completed Tiffanie Rahaim, CCMA null, [facility] 02/07/2023 10:53:28 COVID-19, mRNA, LNP-S, PF, 100 mcg/0.5mL dose or 50 mcg/0.25mL dose 2 completed Tiffanie Rahaim, CCMA null, [facility] 02/07/2023 10:53:28 COVID-19, mRNA, LNP-S, PF, 100 mcg/0.5mL dose or 50 mcg/0.25mL dose 1 completed Tiffanie Alanis CCMA null, [facility] 02/07/2023 10:53:28 COVID-19, mRNA, LNP-S, bivalent, PF, 30 mcg/0.3 mL dose 2 completed Tiffanie Rahaim CCMA null, [facility] 02/07/2023 10:53:28 pneumococcal polysaccharide PPV23 9 completed Tiffanie Rahaim, CCMA null, [facility] 02/07/2023 10:53:28 Tdap 1 completed Tiffanie Alanis CCMA null, [facility] 02/07/2023 10:53:28 Influenza, split virus, trivalent, preservative 0 completed Tiffanie Alanis CCMA null, [facility] 02/07/2023 10:53:28 Influenza, split virus, trivalent, preservative 9 completed Tiffanie Annabelle CCMA null, [facility] 02/07/2023 10:53:28 Influenza, high-dose, quadrivalent, PF 3 completed RAMIN Wilkinson, [facility] 07/13/2023 10:26:49 RSV, recombinant, protein subunit RSVpreF, adjuvant reconstituted, 0.5 mL, PF 3 completed RAMIN Wilkinson, [facility] 07/13/2023 10:26:49 COVID-19, mRNA, LNP-S, PF, 50 mcg/0.5 mL 3 completed RAMIN Wilkinson, [facility] 07/13/2023 10:26:49 COVID-19, mRNA, LNP-S, PF, 50 mcg/0.5 mL 4 completed Radha Troy, [address], [place], [address], [facility] 05/16/2024 13:52:38 Influenza, high-dose, trivalent, PF 4 completed Radha Troy, DO [address] [facility], [place], [address], [facility] 05/16/2024 13:52:38 Pneumococcal conjugate PCV20, polysaccharide [id number] conjugate, adjuvant, PF 4 completed Not Available [facility] 12/19/2024 09:17:52 Past Encounters Encounter ID Performer Location Encounter Start Date Encounter Closed Date Diagnosis/Indication Diagnosis SNOMED-CT Code Diagnosis ICD10 Code Diagnosis Note [id number] [facility] [address] [facility], [address] [place] [address] 03/24/2020 09:27:47 03/24/2020 10:19:04 Osteoarthritis of right knee joint 1315401494 68052 M17.11 see above Tear of la teral meniscus of knee 333987390 S83.281A 69-year-ol d retired female presents today [...] will be scheduled for later this week. [id number] [place] Rucker MD [facility] [address] [place] [address] 04/14/2020 08:49:43 04/14/2020 09:40:22 [id number] West Rucker MD Orthopedi cs [address], [address] [place] [address] 05/17/2020 07:44:55 05/17/2020 08:40:48 Pain in right knee [id number] 34568 M25.561 Patient likely has some postoperat francine-relate d knee swelling, she is mostly experienci ng around the fat pad. Reviewed intra-frederick cular findings, her level relative activities despite the fact that she is 69 usual. She is amenable to trying the injection today, risks benefits and expectatio ns were outlined. Will follow up with us on an as-needed basis. [id number] West Rucker MD Orthopedi cs [address], [address] [place] [address] 06/22/2020 15:39:48 06/22/2020 16:25:11 Pain in right knee [id number] 20262 M25.561 Patient being seen for postoperat francine [...] swelling down. She will [facility] in [facility]2 [facility] for repeat clinical exam. If appropriat e we may perform aspiration . Patient agrees with plan. Postoperative visit 2728 46863 Z09 as above [id number] West Rucker MD Orthopedi cs [address], [address] [place] [address] 07/06/2020 11:02:17 07/06/2020 11:31:55 Pain in right knee 7498428643 31567 M25.561 Patient being seen for postoperat francine [...] swelling down. She will follow-up in [facility] 2 [facility]/2 weeks for repeat clinical exam. [...] plan. History of arthroscopy of knee joint 773202090 Z98.890 as above [id number] West Rucker MD Orthopedi [address], [address] [place] [address] 08/19/2020 10:10:54 08/19/2020 10:38:45 Pain in right knee 9038144848 32135 M25.561 Patient being seen for postoperat francine [...] swelling down. She will [facility]2 [facility] for repeat clinical exam. [...] physical therapy at this time. We Did Elgin Bunnpak would did here for some relief of [...] seen in follow-up. She will continue with self-direc annia physical therapy. She will be seen on an as-needed basis. Patient agrees with plan. History of arthroscopy of knee joint 238820797 Z98.890 as above [id number] KARTIK SCHAFER [facility] [address] [place] [address] 11/21/2021 11:16:56 11/21/2021 11:51:33 Cough 65475869 R05.9 Pt is a 70 yo female [...] s, inability to maintain intake.Due to symptoms, donovan cope COVID testing is pending.Ad juane PCP f/u with continued symptoms, further concerns. [id number] [facility] [place] [facility] [address] [place] [address] 04/03/2022 12:17:58 04/03/2022 13:32:58 Pain of right knee joint 1825500960 25050 M25.561 Very pleasant 71-year-ol d female being [...] on as-needed basis. Patient agrees with plan. [id number] [facility] Office [address] [place] [address] 07/20/2022 08:03:13 07/20/2022 08:45:25 Trochanteric bursitis of left hip 7510007799 41215 M70.62 Very pleasant 71-year-ol d female complainin [...] on as-needed basis. Patient agrees with plan. [id number] [facility] [address], [address] [place] [address] 07/26/2022 10:23:57 07/26/2022 11:06:52 Closed fracture of proximal right humerus 7485214662 2509187 S42.201A This is a very pleasant 71-year-ol [...] of narcotic etc. Patient agrees with plan. [id number] [facility] [address], [address] [place] [address] 08/08/2022 08:41:14 08/08/2022 09:17:20 Closed fracture of proximal right humerus 6710184593 4896613 S42.201A This is a very pleasant 71-year-ol [...] of motion exercises. Patient agrees with plan. [id number] [facility] [address] [place] [address] [place] [address] 09/06/2022 09:38:07 09/06/2022 10:24:10 Closed fracture of proximal right humerus 6060789459 3670659 S42.201A This is a very pleasant 71-year-ol [...] motion exercises. Patient [facility] [place]. She is decreased the use of the [...] shoulder replacemen t. Patient agrees with plan. [id number] [facility] [place] [facility] [place] [address] 09/21/2022 07:19:00 09/21/2022 07:31:01 Closed fracture of proximal right humerus 1742321940 9537196 S42.201A This is a very pleasant 71-year-ol [...] patient for course of physical therapy at [facility]. Patient may follow-up after she completes a course of physical therapy. Patient agrees with plan. [id number] [facility] [place] [facility] [address] [place] [address] 12/28/2022 07:57:32 12/28/2022 08:19:35 Trochanteric bursitis of left hip 3612789382 83061 M70.62 Very pleasant 72-year-ol d female complainin [...] on as-needed basis. Patient agrees with plan. [id number] Radha Troy DO [address] [address] 02/07/2023 10:49:05 02/07/2023 13:07:30 Hyperlipidemia 31086726 E78.5 Currently on simvastati n 20mg daily Hypertensive disorder 38 293658 I10 Currently taking lisinopril 20mg daily. Major depr essive disorder 952594972 F32.9 stableCurr ently taking sertraline 50mg daily. Patient ne w to provider [id number] 35889 Z76.89 Mammogram: 03/16/22pap and pelvic: hysterecto mycolonosc opy: 06/25/2020b one density: 11/28/22immu nization: 2nd pneumo; shingrix?s creening labs order:f/u 1 year Gastroesop hageal reflux disease 775778440 K21.9 stable off of medication Chronic insomnia 1627385 04 F51.04 Due to pain- will hold on medication Parathyroid adenoma 1284 96135 D35.1 Bilateral cataracts 9572 2003 H26.9 surgery last week- resolved Arthritis of left hip 10 50217912 371475 M13.852 Check X-rayfor severity Constipation 65963550 K5 9.00 controlled Cont colace and fiber Pain of hip region 50907 002 M25.559 Body mass index 30+ - obesity 340372633 Z68.37 Screening mammography 24 221097 Z12.31 Administra tion of pneumococcal vaccine 44255705 Z23 [id number] [facility] [place] [facility] [address] [place] [address] 02/22/2023 08:58:37 02/22/2023 09:59:22 Trochanteric bursitis of left hip 5298875189 09341 M70.62 Very pleasant 72-year-ol d female complainin [...] on as-needed basis. Patient agrees with plan. [id number] [facility] [place] [facility] [address] [place] [address] 04/26/2023 10:21:07 04/26/2023 10:56:58 Pain of hip region 08188771 M25.559 Patient received a cortisone injection February [...] l osteoarthr itis. Patient agrees with plan. [id number] [facility] [place] [facility] [place] [address] 05/03/2023 10:59:58 05/03/2023 11:41:08 Low back pain 704877580 M54.50 This very pleasant 72-year-ol d female [...] a back surgeon of her wound in [place]. She will schedule an appointmen t with this doctor as soon as possible. Patient agrees with plan. [id number] Radha Troy DO [address] [address] 07/13/2023 10:20:28 07/13/2023 11:49:38 Hypertensive disorder 02538889 I10 ElevatedIn crease lisinopril to 40mg po dailyf/u in 1 month Vaginal discharge 499514 006 N89.8 Probable BSsent Nu SwabStart flagyl 500mg po BID for & days Postoperat francine wound infection 01885129 T81.40XA much improvedCh diallo dressingwi ll order VNAMuch improved with antibiotic change- cont amoxicilli n 500mg po TID for 10daysChan ge dressing 2 times a day as long as not draining [id number] [facility] [address] [place] [address] 08/01/2023 14:12:07 08/01/2023 16:36:12 Cellulitis 424771211 L03.90 Pt presents with concern for surgical [...] patient who is in agreement with plan. [id number] Radha Troy[address] [address] 08/09/2023 09:01:57 08/09/2023 09:49:29 Postoperative wound infection 27625377 T81.40XA + central necrosis- wound not healingWil l need debridemen t of the surgical woundCalle d the surgical team and schedule appt for possible debridemen t on 08/14/23 at 9:30 [id number] Radhakeyona Troy[address] [address] 10/18/2023 09:41:39 10/18/2023 10:12:28 Hypertensive disorder 24171891 I10 ElevatedIn crease lisinopril to 40mg po dailyamlod ipine 2.5mgf/u in 1 month Acute bronchitis 4587338 2 J20.9 dry cough that is not improvingt rial of Arnuityf/u if not improving Dry eyes 207449825 H04.1 23 Has new medication from [id number] Radha Cece[address] [address] 11/22/2023 13:59:07 11/22/2023 14:41:31 Hypertensive disorder 53746498 I10 ElevatedCo nt lisinopril to 40mg po dailyIncre ase amlodipine 5mgCheck BP once a weekf/u in 1 month with BP readings Major depr essive disorder 892210296 F32.9 Controlled Cont sertraline 50mg po dailyCont with counseling Chronic insomnia 6708628 04 F51.04 Due to pain- will hold on medication Gastroesop hageal reflux disease 546950687 K21.9 stable off of medication Hyperlipidemia 37385284 E78.5 controlled Cont with simvastati n 20 mg po dailylipid s 03/14/23 [id number] Radha Troy DO [address] [address] 05/16/2024 13:12:30 05/16/2024 16:27:10 Adult health examination 085654301 Z00.01 Patient should discuss medical decisions with Health Care Proxy. Recommende d screenings included colonoscop y screening age 45, earlier based on family history/ri sk factors; annual mammogram age 40, unless earlier based on risk factors and discussion with patient; bone density age 65, unless risk factors for earlier screening; one time screen for hepatitis C if born between 3640-3472 or has risk factors. Recommend annual low-dose CT scan screening for high-risk individual s ages 50 to 80 years with 20 pack-year history of smoking and current smoker or quit within past 15 years. Reviewed vaccines and current recommenda tions. Basic health topics include aerobic exercise, importance of healthy/ba lanced diet and minimizing caffeine and alcohol. Administra tion of pneumococcal vaccine 70769294 Z23 If PCV15 is used, this should be followed by a dose of PPSV23 one year later. The minimum interval is 8 weeks and can be considered in adults with an immunocomp romising condition, cochlear implant, or cerebrospi nal fluid leak. If PCV20 is used, a dose of PPSV23 is NOT indicated. Administra tion of diphtheria, pertussis, and tetanus vaccine 439736898 Z23 TDAP given 03/28/21 Screening mammography 24 576261 Z12.31 03/11/24- normal Screening for malignant neoplasm of colon 084120452 Z12.11 06/25/20- tunde Decreased estrogen level 413343067 E28.39 due now Viral screening 47378744 4 Z11.59 The USPSTF recommends one time screening for hepatitis C virus (HCV) infection in adults aged 18 to 79 years.04/23 12/13 Varicella vaccination 68 004927 Z23 05/24/20, 07/28/20 Smoking mo nitoring status 651099041 Z87.891 Recommend annual low-dose CT scan screening [...] After considerin g the patient's unique circumstan anatoliy, and the pros and cons of the alternativ es, the patient has decided to be screened. Advance care planning 71 2764655 Z71.89 Son-Jorge Plascencia Influenza vaccine needed 6155539189 106 Z23 Patient recommende d to go to their local pharmacy to have influenza vaccine administer ed. Discussed importance of influenza vaccine due to the patient's risk of contractin g the disease. A handout was offered to enhance understand ing of the effects and side effects of the vaccine. Lumbar radiculopathy 128 282475 M54.16 Patient s/p laminectom y at L4-L5 on the left for severe NF narrowingP atient had post-op infectionh as not had strength in the lower extremity on the left 3/5 on examnever had follow up with surgeon post infection. Needs repeat MRI of the lumbar spine [id number] Radha Troy DO [address] [address] 07/02/2024 10:35:35 07/02/2024 11:15:32 Lumbar radiculopathy 819730889 M54.16 At, T11-12 ,L2-3, L4-5Patien t s/p laminectom y at L4-L5 on the left for severe NF narrowingP atient had post-op infection that has caused scar tissuehas not had strength in the lower extremity on the left 3/5 on examnever had follow up with surgeon post infection. MRI of lumbar spine done 06/03/24 [facility] showed scar tissue at the area Spinal kenisha nosis of lumbar region 27826847 M48.061 at L2-3 secondary to disc protrusion which is moderate to severerefe rral to neurosurge ry [id number] Radha Troy DO [address] [address] 08/28/2024 08:51:07 08/28/2024 11:07:01 Senile osteoporosis 63107497 M81.0 Cont with Calcium and vitamin Dweight bearing exerciseHa d been on fosamax in past for 10 years- 10 years sincestart prolia 60mg every 6 month [id number] [place] [facility] [place] [address] 09/02/2024 09:07:51 09/02/2024 09:28:51 Senile osteoporosis 60766265 M81.0 Patient tolerated the first injection well, stayed in the office for 20 minutes without any adverse reactions. [id number] Radha Troy DO [address] [address] 10/16/2024 11:45:16 10/16/2024 13:59:35 Pain in throat 115650871 J02.9 ? 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 With flaresecon michelle to stresschec k B12 and folatedisc ussed course of illness is usually self limited [id number] Radha Troy DO [address] [address] 12/19/2024 09:14:27 12/19/2024 10:57:41 Severe obesity 3045340704 9104 E66.812 E66.01 Z68.38 Discussed all option for weight lossGLP-1 will not be covered by insuranceT noemy montelongoamax and naltrexone Lumbar radiculopathy 128 398022 M54.16 At, T11-12 ,L2-3, L4-5Patien t s/p laminectom y at L4-L5 on the left for severe NF narrowingP atient had post-op infection that has caused scar tissuehas not had strength in the lower extremity on the left 3/5 on examnever had follow up with surgeon post infection. MRI of lumbar spine done 06/03/24 [facility] showed scar tissue at the areaHad repeat yesterday for neurosurge mohini topamax 50mg po BID Pain of le ft shoulder region 0794250650 M25.512 Increasing pain? bicep tendonitis vs OAXR of the shoulder lt Health Concerns Section Related Observation LastModified by Organization Detai ls LastModified Time None Recorded Concern Status LastModified by Organization Details LastModified Time None Recorded Advance Directives Directive Y: Son- Maureen Plascencia Payers Insurance Date Sequence Insurance Name Policy Number Policy Castellano Covered Member ID Castellano Member ID Guarantor Name 12/19/2024 1 MEDICARE [place]: [employer] [facility] [id number] [facility] 01/05/2025 2 [facility] IN[facility] - [facility] [id number] [facility] [id number] [facility] Notes Date Note Type Note Provider Name and Address Organization Details Recorded Time 08/28/2024 text/html 73 yo F presents for [...] Pt was told by a Dr in [place] that she will not need a spinal [...] World Health Organization criteria. Radha Troy DO [address] [place] [address], [phone], [facility] 08/28/2024 09:31:51 09/02/2024 text/html Patient presents in office today for her first Prolia injection Radha Troy DO [address] [place] [address], [phone], [facility] 09/03/2024 12:35:00 10/16/2024 text/html 73 yo F [...] do her stretches/exercises everyday. Radha Troy DO [address] [place] [address], [phone], [facility] 10/17/2024 16:38:13 11/06/2024 text/html 73 year old [...] will be staying with the pt. Radha Zhaobritney [address] [place], [address], [facility] 11/06/2024 16:46:54 12/19/2024 text/html 74 yo F presents for weight loss discussion. Pt is interested in starting Zepbound. Patient has medicare for insurance which does not cover GLP-1 medications for weight loss.Pt did have parathyroid disease yrs ago and had kidney stones d/o this.She does have hx of high BP.Would love to get a membership at the and do some swimming.Hoping her insurance could help with the payments. Pt had an MRI yesterday. Results are not in yet. Dr. Rowe in [facility] ordered this. Pain is radiating down her leg now.She is hoping weight loss would be able to help with this. Pt c/o L shoulder pain. With force she can move her shoulder up but there is increased pain. Arm backwards is okay. Flexion worse.Just seems to be getting worse. She did break the R shoulder.Pt is driving to [place] to take care of her grandkids. Radha ZhaobritneyDO [address] [place], [address], [facility] 12/19/2024 10:04:54 OBGyn Episode Ob Episode Information Episode Created Date Number of Fetuses Patient Bloodtype Patient rh Status Prepregnancy Weight lbs Domestic Partner Domestic Partner Phone Father Name Asbestos Siding Installer Status 02/08/20 23 1 CLOSED Fetus Data First Name Last Name Admitted to NICU Weight (g) Sex Living Outcome Pediatric Complications Fetus ID Race Codes Race Delivery Type M Full Term 01751 Vaginal (96692) Ruben Calculation Initial Ruben Date Initial Exam [...] Domestic Partner Domestic Partner Phone Father Name Asbestos Siding Installer Status 02/08/20 23 1 CLOSED Fetus Data First Name Last Name Admitted to NICU Weight (g) Sex Living Outcome Pediatric Complications Fetus ID Race Codes Race Delivery Type M Full Term 55286 Vaginal (99695) Ruben Calculation Initial Ruben Date Initial Exam [...] Domestic Partner Domestic Partner Phone Father Name Asbestos Siding Installer Status 02/08/20 23 1 CLOSED Fetus Data First Name Last Name Admitted to NICU Weight (g) Sex Living Outcome Pediatric Complications Fetus ID Race Codes Race Delivery Type M Full Term 66831 Vaginal (27532) Ruben Calculation Initial Ruben Date Initial Exam [...] Domestic Partner Domestic Partner Phone Father Name Asbestos Siding Installer Status 02/08/20 23 1 CLOSED Fetus Data First Name Last Name Admitted to NICU Weight (g) Sex Living Outcome Pediatric Complications Fetus ID Race Codes Race Delivery Type F Full Term 69889 Vaginal (72905) Ruben Calculation Initial Ruben Date Initial Exam [...]
--- NOTE | 2025-01-09 15:29 | HO.SPINEOV ---
Intake Visit Reasons: Discuss results of MRI Intake Note: Ms. Samayoa is here to discuss the results to her MRI. Laundry Supervisor Required: No Assessment & Plan Assessment & Plan (1) Lumbar radiculopathy: Code(s): M54.16 - Radiculopathy, lumbar region Category: Medical Plan Dr Thrasher and I saw Mrs Samayoa back in the office today for follow-up. We reviewed her MRI done at [facility] and this shows that she has stenosis at L2-3 with primarily right-sided dominant overgrowth of the ligamentum flavum causing compression in the lateral recess. He thinks it would explain her claudicating pain in her right anterior thigh quite nicely and could offer her a decompression. With regard to the left-sided hip flexor weakness. When I examined her today there is definitely a component of pain when I do internal and external rotation. She has told me that her hip x-rays have been okay in the past, but it does seem to be that there is a mechanical component. We reviewed her thoracic MRI and her cervical MRI again. Although she has some slight prominence of the CSF posteriorly in the upper thoracic spinal cord, it is not compressing anything and would not explain her symptoms. We told her that she should consider getting re-evaluated for a hip problem. The patient is due to go for trip to [place] and will call us when she gets back if she decides she would like to go ahead with the L2-3 decompression on the right side. Total amount of time spent in this visit was 20 minutes in discussion of symptoms, lumbar MRI imaging results and subsequent plan of care Jose Cruz Thrasher MD,PhD [facility] Coding Level of Care Code Est Pt Level 3 (97905) Diagnoses Lumbar radiculopathy M54.16
== END 2025-01-09 15:52 | disposition home or self-care (01) ==
LOC: HO.HNS 15:07
PROVIDERS: PCP Family Medicine; Visit Provider Physician Assistant
DX: M54.16 Radiculopathy, lumbar region (principal)
CPT/HCPCS: 99213

== ENCOUNTER → 2025-01-09 15:06 | Outpatient (BNVA) | payer MEDICARE, OTHER, SELFPAY | PROVIDERS: PCP Family Medicine; Visit Provider Physician Assistant | DX: M54.16 Radiculopathy, lumbar region (principal) | CPT/HCPCS: 99212 ==

== ENCOUNTER 2025-04-02 09:42 | Day surgery (SDC) | payer MEDICARE, OTHER, SELFPAY ==
--- OUTSIDE RECORDS SUMMARY | 2025-03-10 13:10 | XMS_ITS | Continuity of Care Document ---
Author Organization [facility] Address [address] [place] [address] [address] [place], [place] Phone [phone] Care Team Providers Care Scleroscope Tester Name Role Phone Tanja La MD Care Team Information Receive r Unavailable Social History Type Date Description Comments Sex Female Sex Unknown
[2025-03-31 09:09] VITALS: BMI 34.8
--- NOTE | 2025-03-31 14:22 | HO.ANESPROP2 ---
Documented by User: Nena Leon NP 03/31/25 14:25 HPI - Anesthesia Eval Consult details Narrative: 74yo F for L2-3 Decompression, 04/02/25 *Multiple allergies: vague reaction or patient does not recall allergy* Pt walks ~ 2 x miles daily without CP/SOB Naltrexone for weight loss. Last dose 03/30/25 PMFSH Active Problems Active Problems: All Active Problems Lumbar radiculopathy (Acute) Left leg weakness (Acute) Cervical disc disorder (Acute) Past Medical History Medical History Walks frequently Parathyroid adenoma Depression Pneumonia Elevated cholesterol HTN (hypertension) Surgical History Surgical History History of back surgery Hx of arthroscopic knee surgery Hx of reduction mammoplasty H/O colonoscopy Hx of cervical spine surgery Hx of hysterectomy Hx of cataract extraction History of parathyroid surgery Social History Social History Household Members Other:: niece lives in apartment in patient's home Are you a primary certified social workers in health care to a significant other at home: No Do you presently have visiting nurse or other home services: No Patient Tobacco Use Status: Former Tobacco user Tobacco use type: Cigarette Years Smoked: 20 Use of substances other than those prescribed or required for medical reasons: No Substance Use Type Other:: former use cannabis edibles-none in 2 months Have you been hit, kicked, punched, or otherwise hurt by someone within the past year? If so, by whom?: No Spiritual Healthcare Practices: no Mu-Ism Healthcare Practices: no Cultural Healthcare Practices: no Are you DNR?: No Advance Directives: No (states son is primary contact) Advance Directives Information Provided: Yes (as above noted) Advance Directives on File: No FDLMP: n/a Poor oral hygiene: No Meds Allergies Allergy/AdvReac Type Severity Reaction Status Date / Time morphine Allergy Intermediate Rash Verified 04/02/25 10:00 carisoprodol Allergy Unknown Unknown-does Verified 04/02/25 10:00 not recal reaction nabumetone (From Relafen) Allergy Unknown Unknown-does Verified 04/02/25 10:00 not recall reaction paroxetine (From Paxil) Allergy Unknown Unknown-does Verified 04/02/25 10:00 not recall reaction pholcodine Allergy Unknown Unknown-does Verified 04/02/25 10:00 nor recall reaction pregabalin (From Lyrica) Allergy Unknown Unknown-does Verified 04/02/25 10:00 not recall reaction rofecoxib (From Vioxx) Allergy Unknown Unknown-does Verified 04/02/25 10:00 not recall reaction sulfadiazine Allergy Unknown Unknown-does Verified 04/02/25 10:00 not recall reaction sulfamethizole Allergy Unknown Unknown-does Verified 04/02/25 10:00 not recall reaction tramadol (From Ultram) Allergy Unknown Unknown-does Verified 04/02/25 10:00 not recall reaction Home Medications ?Medication ?Instructions ?Recorded ?Confirmed ?Last Taken ?Type amlodipine 10 mg tablet 10 mg PO DAILY 03/31/25 03/31/25 04/02/25 History calcium carbonate (Calcium 600) 600 mg PO BID 03/31/25 03/31/25 Unknown History cholecalciferol (vitamin D3) 50 50 mcg PO DAILY 03/31/25 03/31/25 Unknown History mcg (2,000 unit) capsule (Vitamin D3) cyanocobalamin (vitamin B-12) 2,500 mcg sublingual DAILY 03/31/25 03/31/25 Unknown History 2,500 mcg sublingual tablet (Vitamin B-12) denosumab 60 mg/mL subcutaneous 60 mg subcut [id number] 03/31/25 03/31/25 Unknown History syringe (Prolia) fluticasone furoate 100 1 inh inhalation DAILY 03/31/25 03/31/25 Unknown History mcg/actuation blister powder for inhalation (Arnuity Ellipta) lactobacillus combo no.11 15 1 cap PO DAILY 03/31/25 03/31/25 Unknown History billion cell sprinkle capsule (Probiotic) lisinopril 40 mg tablet 40 mg PO DAILY 03/31/25 03/31/25 Unknown History naltrexone 50 mg tablet 25 mg PO DAILY weight loss 03/31/25 03/31/25 Unknown History sertraline 50 mg tablet 50 mg PO DAILY 03/31/25 03/31/25 Unknown History simvastatin 20 mg tablet 20 mg PO BEDTIME 03/31/25 03/31/25 Unknown History topiramate 50 mg tablet 50 mg PO BID 03/31/25 03/31/25 Unknown History Exam Height,Weight and Vital Signs: Height 5 ft 1 in Weight 83.461 kg Assessment and Plan Assessment Anesthesia Assessment: Chart Reviewed Documented by User: Natalie Cano MD 04/02/25 10:21 [facility] Past Medical History Medical History Walks frequently Parathyroid adenoma Depression Pneumonia Elevated cholesterol HTN (hypertension) Family History Family history of problems with anesthesia: No Surgical History Surgical History History of back surgery Hx of arthroscopic knee surgery Hx of reduction mammoplasty H/O colonoscopy Hx of cervical spine surgery Hx of hysterectomy Hx of cataract extraction History of parathyroid surgery History of Problems with Anesthesia: No Social History Social History Household Members Other:: niece lives in apartment in patient's home Are you a primary certified social workers in health care to a significant other at home: No Do you presently have visiting nurse or other home services: No Patient Tobacco Use Status: Former Tobacco user Tobacco use type: Cigarette Years Smoked: 20 Use of substances other than those prescribed or required for medical reasons: No Substance Use Type Other:: former use cannabis edibles-none in 2 months Have you been hit, kicked, punched, or otherwise hurt by someone within the past year? If so, by whom?: No Spiritual Healthcare Practices: no Mu-Ism Healthcare Practices: no Cultural Healthcare Practices: no Are you DNR?: No Advance Directives: No (states son is primary contact) Advance Directives Information Provided: Yes (as above noted) Advance Directives on File: No FDLMP: n/a Poor oral hygiene: No Meds Allergies Allergy/AdvReac Type Severity Reaction Status Date / Time morphine Allergy Intermediate Rash Verified 04/02/25 10:00 carisoprodol Allergy Unknown Unknown-does Verified 04/02/25 10:00 not recal reaction nabumetone (From Relafen) Allergy Unknown Unknown-does Verified 04/02/25 10:00 not recall reaction paroxetine (From Paxil) Allergy Unknown Unknown-does Verified 04/02/25 10:00 not recall reaction pholcodine Allergy Unknown Unknown-does Verified 04/02/25 10:00 nor recall reaction pregabalin (From Lyrica) Allergy Unknown Unknown-does Verified 04/02/25 10:00 not recall reaction rofecoxib (From Vioxx) Allergy Unknown Unknown-does Verified 04/02/25 10:00 not recall reaction sulfadiazine Allergy Unknown Unknown-does Verified 04/02/25 10:00 not recall reaction sulfamethizole Allergy Unknown Unknown-does Verified 04/02/25 10:00 not recall reaction tramadol (From Ultram) Allergy Unknown Unknown-does Verified 04/02/25 10:00 not recall reaction Home Medications ?Medication ?Instructions ?Recorded ?Confirmed ?Last Taken ?Type amlodipine 10 mg tablet 10 mg PO DAILY 03/31/25 03/31/25 04/02/25 History calcium carbonate (Calcium 600) 600 mg PO BID 03/31/25 03/31/25 Unknown History cholecalciferol (vitamin D3) 50 50 mcg PO DAILY 03/31/25 03/31/25 Unknown History mcg (2,000 unit) capsule (Vitamin D3) cyanocobalamin (vitamin B-12) 2,500 mcg sublingual DAILY 03/31/25 03/31/25 Unknown History 2,500 mcg sublingual tablet (Vitamin B-12) denosumab 60 mg/mL subcutaneous 60 mg subcut [id number] 03/31/25 03/31/25 Unknown History syringe (Prolia) fluticasone furoate 100 1 inh inhalation DAILY 03/31/25 03/31/25 Unknown History mcg/actuation blister powder for inhalation (Arnuity Ellipta) lactobacillus combo no.11 15 1 cap PO DAILY 03/31/25 03/31/25 Unknown History billion cell sprinkle capsule (Probiotic) lisinopril 40 mg tablet 40 mg PO DAILY 03/31/25 03/31/25 Unknown History naltrexone 50 mg tablet 25 mg PO DAILY weight loss 03/31/25 03/31/25 Unknown History sertraline 50 mg tablet 50 mg PO DAILY 03/31/25 03/31/25 Unknown History simvastatin 20 mg tablet 20 mg PO BEDTIME 03/31/25 03/31/25 Unknown History topiramate 50 mg tablet 50 mg PO BID 03/31/25 03/31/25 Unknown History Exam Airway Mallampati Class: II TM Dist: <=3cm Neck ROM: Limited Heart: rrr Lungs: cta Assessment and Plan Assessment Anesthesia Assessment: Anesthesia Plan Discussed Final Anesthetic Review Family History of Problems with Anesthesia: No History of Problems with Anesthesia: No NPO: Yes ASA Class: III (pt unsure if she stopped topramax or naltrexone 3 days prior, surgeon aware and wants to proceed, post operative pain control can be probllematic, both aware and accept) Patient Risk: Intermediate Procedure Risk: Intermediate Anesthetic Plan Anesthetic Plan: GA and Agree w/ Assess. and Plan Disposition: Standard PACU
[2025-04-02] VITALS (8 sets, daily range): BP systolic 95–139; BP diastolic 43–86; PULSE 48–71; RESP 12–18; TEMP 36.1–36.7; O2SAT 95–100; BMI 34.3
--- NOTE | ~2025-04-02 | FL_ITS ---
EXAMINATION: FL GUIDANCE ONLY HISTORY: L2-3 DECOMPRESSION COMPARISON: None available. TECHNIQUE: Fluoroscopy time: 3.2 seconds. Cumulative Dose: 4.0579 mGy. DAP: 1.2615 mGym2 Images: 1. FINDINGS: A single fluoroscopic spot film of the lumbar spine in the lateral projection demonstrates a probe directed toward the L3-4 intervertebral disc space from a posterior approach. FL/FL guidance in OR IMPRESSION: Fluoroscopy during procedure. Please see procedure report for additional information. Electronically signed by: Justin Ojeda MD 04/02/2025 02:13 PM EDT
[2025-04-02] MEDS: Lactated Ringers 1,000 ML 100 ML IVCONT (10:16)
--- NOTE | 2025-04-02 10:27 | PC.NURSE ---
Dr. Cano aware that patient did not stop taking her naltrexone as she had been instructed and took this a.m. Doctor stated no interventions and okay to proceed.
--- NOTE | 2025-04-02 10:43 | MHC.SHP ---
Pre-Procedural Eval Section A - 24 Hr Update-Section A only Date of Service: 04/02/25 The patient is an INPATIENT: No Section B - Complete if H&P > 30 days Chief Complaint: Radiculopathy, lumbar region Details of Present Illness: Right leg pain Allergies: Allergies Allergy/AdvReac Type Severity Reaction Status Date / Time morphine Allergy Intermediate Rash Verified 04/02/25 10:00 carisoprodol Allergy Unknown Unknown-does Verified 04/02/25 10:00 not recal reaction nabumetone (From Relafen) Allergy Unknown Unknown-does Verified 04/02/25 10:00 not recall reaction paroxetine (From Paxil) Allergy Unknown Unknown-does Verified 04/02/25 10:00 not recall reaction pholcodine Allergy Unknown Unknown-does Verified 04/02/25 10:00 nor recall reaction pregabalin (From Lyrica) Allergy Unknown Unknown-does Verified 04/02/25 10:00 not recall reaction rofecoxib (From Vioxx) Allergy Unknown Unknown-does Verified 04/02/25 10:00 not recall reaction sulfadiazine Allergy Unknown Unknown-does Verified 04/02/25 10:00 not recall reaction sulfamethizole Allergy Unknown Unknown-does Verified 04/02/25 10:00 not recall reaction tramadol (From Ultram) Allergy Unknown Unknown-does Verified 04/02/25 10:00 not recall reaction Review of Systems Sugical H&P ROS: Negative: Constitution, Cardiovascular, Respiratory, Neurological, Psychiatric, Hem-Onc, Allergic/Immunologic, Gastrointestinal, Genitourinary, Musculoskeletal, Integumentary, Endocrine and Eyes/Ears/Nose/Throat Exam Surgical H&P Exam: Normal: HEENT, Normal: Heart, Normal: Lungs, Normal: Extremities, Normal: Abdomen, Normal: Skin and Normal: Neurological (Awake, alert) Plan I have reviewed the history and physical and performed a pertinent physical examination on my patient. No changes have occurred unless specified. Right L2-3 decompression Time Spent With Patient Time: Total time managing care of this patient today __4__ minutes.
--- NOTE | 2025-04-02 13:46 | PM.DS ---
DS: Providers Provider Date of Service: 04/02/25 Date of discharge: 04/02/25 Primary care physician: Radha Jo DO DS: Summary Time Attestation Discharge Coordination Time (in mins): 12 Quality: Safe Use of Opioids Does Pt have an Active Cancer Diagnosis on the Problem List?: No Quality: Stroke Does the patient have a stroke diagnosis?: No Physical Exam Vital Signs: Vital Signs: Last Vital Signs Temp 98.0 F 04/02/25 10:26 Pulse 48 L 04/02/25 10:26 Resp 18 04/02/25 10:26 BP 139/60 04/02/25 10:26 Pulse Ox 98 04/02/25 10:26 O2 Del Method Room Air 04/02/25 10:26 BMI result Body Mass Index 34.3 Discharge Plan Discharge Patient Disposition: Home, Self-Care Referrals: Radha Jo DO [Primary Care Provider, Family Practice] - 1 Week Discharge Medications: New hydrocodone-acetaminophen 5-325 mg tablet 1 tab PO Q6-8H PRN (Reason: pain) Qty: 20 0RF Rx Instructions: Partial Fill upon patient request. Continued cyanocobalamin (vitamin B-12) [Vitamin B-12] 2,500 mcg Tablet, Sublingual 2,500 mcg SUBLINGUAL DAILY naltrexone 50 mg tablet 25 mg PO DAILY calcium carbonate [Calcium 600] 600 mg calcium (1,500 mg) Tablet 600 mg PO BID amlodipine 10 mg tablet 10 mg PO DAILY simvastatin 20 mg tablet 20 mg PO BEDTIME lisinopril 40 mg tablet 40 mg PO DAILY sertraline 50 mg tablet 50 mg PO DAILY topiramate 50 mg tablet 50 mg PO BID cholecalciferol (vitamin D3) [Vitamin D3] 50 mcg (2,000 unit) Capsule 50 mcg PO DAILY Prolia 60 mg/mL syringe 60 mg subcut [id number] Probiotic 15 billion cell Capsule, Sprinkle 1 cap PO DAILY Rx Instructions: do not crush/chew/cut; swallow whole OR may open and sprinkle in cold drink/food fluticasone furoate [Arnuity Ellipta] 100 mcg/actuation blister with device 1 inh inhalation DAILY Discharge Orders: Discharge Order (Routine); Ordered 04/02/25 Ordered By: Nicko Parker Diet: Advance to usual diet Activity on Discharge: As tolerated Activity Restrictions/Additional Instructions: After your spinal surgery we ask you to observe the following restrictions/guidelines: Activity: It is normal to feel some discomfort as you increase your activity, but that will improve with time. We ask you avoid heavy lifting or acitivities that cause pain. As a general rule, 8lbs is a safe limit for lifting right after surgery. Walk as much as you feel comfortable but not to exhaustion. You will feel extra tired the first few days after surgery. Stay well hydrated. It is OK to walk up and down stairs You may return to driving when you are off narcotics (such as vicodin, oxycodone, dilaudid, etc), and you are back to normal functional capacity. If you have any concerns please check with office before driving. Return to work is specific to each patient and each surgery, so please speak with your doctor/PA at first follow up. Please bring paperwork such as FMLA at that time if you need it filled out. Medications: You have been prescribed Hydrocodone (Vicodin) for postoperative pain control. Please use this only as needed for pain control. It may make you tired / sleepy. We recommend you take 500mg Tylenol every 6 hours for the first few weeks after surgery, if you do not have any liver issues and can tolerate this medication. Do not exceed 4,000mg daily. We will give you a short supply of narcotics after surgery (usually one weeks worth). If you need more please call the office but do not use more than prescribed. You will need to give our office 48 hours notice if you need narcotics refilled and we do not fill narcotics on weekends or evenings. If you are on a narcotic, it is a good idea to take a stool softener such as colace or senna to avoid constipation If you take blood thinner such as aspirin, Plavix, Coumadin, Effient, Eliquis etc for conditions such as Afib, DVT, Pulmonary embolus, coronary disease, stents etc please speak with your surgeon about specific details as to when you can resume these medications. You can resume NSAIDs on post op day 1 (eg: Motrin, Naproxen, etc). Follow up: Please call the office, , after surgery to arrange a 3 week follow up for wound check. Wound Care: You may remove your dressing on the first day after surgery. ?You may ?leave open to air. Please do not remove the steri strips underneath. they will fall off on their own in one week. IT IS NORMAL FOR THE WOUND TO OOZE OR BE BLOODY FOR A FEW DAYS AFTER SURGERY. ?IF THIS HAPPENS JUST PLACE NEW DRESSING OVER IT TO AVOID STAINING CLOTHES. You may shower on post op day # 1 We ask that you do not let the water soak the wound. If it does get wet, just towel dry lightly. Please do not scrub your incision or place any type of chemical/ointment on the wound. No tub baths, pools or jacuzzis for one month. If you have any leaking or redness from your wound, or fevers, please call the office. Print Language: Kittitian
--- NOTE | 2025-04-02 15:21 | W.PM.OPN ---
Operative Note Operative Note Date of Service: 04/02/25 Narrative: Preoperative Diagnosis: L2-3 spinal stenosis/lateral recess stenosis/neural foraminal stenosis Operation: Right L2-3 Laminotomy, Partial facetectomy and foraminotomy with use of microscope Consent Informed Consent was obtained for this operation. I have explained the nature, purpose and benefits of the operation. I have discussed the risks and benefit of the operation including possible complications or adverse events with patient/family. Alternative(s) were discussed with the patient with their relative benefits and risks as well as the consequences of not accepting the operation were included in obtaining consent. Surgeon: TEJAL COX MD, PHD Procedure Assisted By: Nicko Correa Description of Procedure This patient is suffering from right-sided lumbar radiculopathy. MRI shows [id number] L2-3 spinal stenosis and lateral recess stenosis. The patient was offered a decompression. The procedure complications were explained. The patient was consented. The patient was brought to the operating room and endotracheally intubated. The patient was turned in prone position on the Lalo frame. Prep and drape was done followed by timeout. The Physician assistant professor of geography provided access. A mid lumbar incision was made followed by release of the paravertebral muscle on the right side to expose the L2-3 lamina and facet joints. An intraoperative x-ray was obtained to confirm the correct level. The microscope was brought in. I took over the procedure. The high-speed drill was used to do a L2-3 laminotomy until flavum ligament was reached. A #2 Kerrison was used to expand the laminotomy near flush to the pedicles and to include a partial facetectomy. The flavum ligament was opened and resected with a #3 Kerrison to decompress the underlying thecal sac. The flavum ligament was removed to decompress the lateral recess and the exiting L3 nerve root. A long nerve hook could be easily passed along the medial side of the pedicles as a sign of adequate decompression. The microscope was removed. Hemostasis was done. The physician assistant professor of geography close the Incision in 2 layers. Steri-Strips were used to approximate incision. An OpSite with Tegaderm was used to cover the incision. All sponge needle counts were correct. Patient was extubated and transported in stable is to recovery room. Anesthesia: General Estimated Blood Loss (ml): 15 Complications: None Duration of Surgery: Under 60 Minutes Postoperative Plan: Discharge to home
== END 2025-04-02 15:33 | disposition home or self-care (01) ==
PROVIDERS: PCP Family Medicine; Visit Provider Neurological Surgery
PROC: (CPT 63047; principal; 2025-04-02 12:20)
DX: M48.061 Spinal stenosis, lumbar region without neurogenic claudication (principal); M54.16 Radiculopathy, lumbar region; Z79.899 Other long term (current) drug therapy; Z88.2 Allergy status to sulfonamides; Z88.5 Allergy status to narcotic agent; Z88.8 Allergy status to other drugs, medicaments and biological substances; Z98.890 Other specified postprocedural states
CPT/HCPCS: 63047; J0131; J0690; J1100; J1885; J2003; J2250; J2405; J2704; J3010; J3374

== ENCOUNTER → 2025-04-02 09:42 | Outpatient (BNV) | payer MEDICARE, OTHER, SELFPAY | PROVIDERS: PCP Family Medicine; Visit Provider Physician Assistant | DX: M51.16 Intervertebral disc disorders with radiculopathy, lumbar region (principal) | CPT/HCPCS: 63047; 99499 ==

== ENCOUNTER 2025-04-23 09:39 | Outpatient (AMB) | payer MEDICARE, OTHER, SELFPAY ==
--- NOTE | 2025-04-23 09:44 | HO.SPINEOV ---
Intake Visit Reasons: 1st post op Intake Note: Ms. Samayoa is here today for her 1st post op. Auto Vinyl Top Installer Required: No Allergies morphine Allergy (Intermediate, Verified 04/02/25 10:00) Rash carisoprodol Allergy (Unknown, Verified 04/02/25 10:00) Unknown-does not recal reaction nabumetone (From Relafen) Allergy (Unknown, Verified 04/02/25 10:00) Unknown-does not recall reaction paroxetine (From Paxil) Allergy (Unknown, Verified 04/02/25 10:00) Unknown-does not recall reaction pholcodine Allergy (Unknown, Verified 04/02/25 10:00) Unknown-does nor recall reaction pregabalin (From Lyrica) Allergy (Unknown, Verified 04/02/25 10:00) Unknown-does not recall reaction rofecoxib (From Vioxx) Allergy (Unknown, Verified 04/02/25 10:00) Unknown-does not recall reaction sulfadiazine Allergy (Unknown, Verified 04/02/25 10:00) Unknown-does not recall reaction sulfamethizole Allergy (Unknown, Verified 04/02/25 10:00) Unknown-does not recall reaction tramadol (From Ultram) Allergy (Unknown, Verified 04/02/25 10:00) Unknown-does not recall reaction Assessment & Plan Assessment & Plan (1) Status post lumbar spine surgery for decompression of spinal cord: Code(s): Z98.890 - Other specified postprocedural states Category: Surgical Plan Operation: Right L2-3 Laminotomy Kiara is a pleasant 74 year old female who underwent right sided L2-[address] Thrasher a few weeks ago. She has been doing remarkably well since her surgery. She reports that her pain essentially has resolved since her operation. She has been completing her activities of daily living around the home without issue, and asked several questions regarding the postoperative healing course. I answered all these questions to the best of my ability. No new neurological deficits. The patient ambulates well and rises from a seated position without difficulty. Her posterior incision site is closed and well healing. No signs of edema or drainage. Kiara requested that she does not come back for a 2nd postoperative visit, which I believe is entirely reasonable given her very good results from surgery. I encouraged him to follow up with us on an as-needed basis in the future if she feels like she needs to. Nicko Thrasher MD,PhD [facility] Coding Level of Care Code Global (83542) Diagnoses Status post lumbar spine surgery for decompression of spinal cord Z98.890
--- OUTSIDE RECORDS SUMMARY | 2025-04-23 10:44 | XMS_ITS | Continuity of Care Document ---
Author Organization [facility] Address [address] [place] [address] [address] [place], [place] Phone [phone] Care Team Providers Care Bottom Scrubber Name Role Phone Tanja La MD Care Team Information Receive r Unavailable Social History Type Date Description Comments Sex Female Sex Unknown
--- OUTSIDE RECORDS SUMMARY | 2025-04-23 10:44 | XMS_ITS | Encounter Summary ---
Author Organization [facility] Address [address] [address] Phone Care Team Providers Care Supervisor Fiber Locking Name Role Phone Radha Jo Primary Care Provider [phone] Encounter Details Date Type Department Care Team (Late st Contact Info) Description 06/04/[address] [facility] [address] [place] [address] Social History Tobacco Use Types Packs/Day Years [...] 06/05/2023 7:00 AM Nancy Hernandez RN * [place] Suicide Severity Rating Scale (Screener/Recent Self-Report) Question [...] on filedocumented in this encounter Care Teams Supervisor Fiber Locking Relationship Specialty Start Date End Date Radha Jo DO [address] [place] [id number] PCP - General Family Medicine 05/03/23 documented as of this encounter Additional Source Comments The information contained in this document represents components of the legal health record. It is not the complete legal health record.[facility]
--- OUTSIDE RECORDS SUMMARY | 2025-04-23 10:44 | XMS_ITS | Encounter Summary ---
Author Organization [facility] Address [address] [facility] [address] [place] [phone] Phone Care Team Providers Care Parts Clerk Plant Maintenance Name Role Phone Radha Jo DO Primary Care Provider [phone] Encounter Details Date Type Department Care Team ([facility] st Contact Info) Description 05/03/2023 Procedure Pass [facility], [place] [address] [place] [address] Social History Tobacco Use Types Packs/Day Years [...] on filedocumented in this encounter Care Teams Parts Clerk Plant Maintenance Relationship Specialty Start Date End Date Radha Jo DO NPI: [id number] [place] [address] [address] [place] [address] PCP - General Family Medicine 05/03/23 documented as of this encounter Additional Source Comments The information contained in this document represents components of the legal health record. It is not the complete legal health record.[facility]
--- OUTSIDE RECORDS SUMMARY | 2025-04-23 10:44 | XMS_ITS | Encounter Summary ---
Author Organization [facility] Address [address] [place] [phone] Phone Care Team Providers Care Hvac Maintenance Technician Name Role Phone Radha Jo Primary Care Provider [phone] Encounter Details Date Type Department Care Team (Late st Contact Info) Description 06/04/2023 Procedure Pass [facility] [address] [place] [address] Social History Tobacco Use Types Packs/Day Years [...] 06/05/2023 7:00 AM Nancy Hernandez RN * [place] Suicide Severity Rating Scale (Screener/Recent Self-Report) Question [...] on filedocumented in this encounter Care Teams Hvac Maintenance Technician Relationship Specialty Start Date End Date Radha Jo DO [address] [place] [id number] PCP - General Family Medicine 05/03/23 documented as of this encounter Additional Source Comments The information contained in this document represents components of the legal health record. It is not the complete legal health record.[facility]
--- OUTSIDE RECORDS SUMMARY | 2025-04-23 10:44 | XMS_ITS | Clinical Summary ---
Author Organization [facility] Address [address] [place] [phone] Phone Care Team Providers Care Fine Wire Drawer Name Role Phone Radha Jo Primary Care Provider Allergies Active Allergy Reactions Criticality Noted Date [...] 59 08/14/2023 10:22 AM EST Temperature 36.3 C (97.3 F) 07/10/2023 10:58 AM EST Respiratory Rate 16 08/14/2023 10:13 AM EST [...] Hx and SMOKELESS TOBACCO SCREENING 12/07/1963 HEPATITIS C SCREENING 1968 MAMMOGRAM 1990 COLOGUARD 12/07/1995 COLONOSCOPY 12/07/1995 COLORECTAL CANCER SCREENING 12/07/1995 FIT TEST 12/07/1995 FOBT 12/07/1995 SIGMOIDOSCOPY 12/07/1995 VIRTUAL COLONOSCOPY 12/07/1995 CREATININE LEVEL 06/15/2015 06/15/2014, , 05/08/2014, Additional history exists POTASSIUM LEVEL 06/15/2015 06/15/2014, 04/22, 05/08/2014, Additional history exists OSTEOPOROSIS SCREENING INITIAL (ONE-TIME) 12/07/2015 PNEUMOCOCCAL VACCINES (50+ years) (2 of 2 - PCV) 11/30/2019 11/29/2018 COVID-19 VACCINE (7 - 2024- season) 2025 05/17/2023, 04/25/2022, 02/01/2022, Additional history exists Adult [...] age to complete this topic MENINGOCOCCAL VACCINES (B) Aged Out N o longer eligible based on patient's age to complete this topic Medical Devices Not on file Procedures Procedure Name Priority Date/Time Associated Diagnosis Comments HISTORICAL LAB Routine 06/15/2014 10:18 PM EST from Last 3 Months or Most Recently Relevant to Health Maintenance Results * (ABNORMAL) Historical Lab (06/15/2014 10:18 PM EST) GLUCOSE 91 70 - 100 mg/dL [facility] N 16 6 - 23 mg/dL [facility] CREATININE 1.15 0.50 - 1.20 mg/dL [facility] eGFR 48(A) 60 - 150 mL/min/1.7 3m2 [facility] Comment:If patient is black, multiply result by 1.21 SODIUM 143 136 - 145 mmol/L [facility] POTASSIUM 3.9 3.4 - 5.0 mmol/L [facility] CHLORIDE 104 98 - 107 mmol/L [facility] TOTAL CO2 27 22 - 31 mmol/L [facility] CALCIUM 9.6 8.8 - 10.7 mg/dL [facility] ANION GAP 12 5 - 17 mmol/L [facility] 06/15/2014 10:1 8 PM EST Comment:BLOOD Narrative [facility] - 06/15/2014 10:18 PM EST [id number] Conversion Provider Not In Sys LAB BLOOD ORDERAB LES Final Result Performing Organization Address City/State/[facility] Co de Phone Number [address] [address] from Last 3 Months or Most Recently Relevant to Health Maintenance Insurance MEDICARE PART A & B [facility] MEDICARE SUPPLEMENT MEDICARE PART A & [place] [address] [place] [address] [employer] MEDICARE SUPPLEMENT MEDICARE PART A & B [facility] [employer]ION MEDICARE SUPPLEMENT MEDICARE PART A & B [employer] MEDICARE SUPPLEMENT MEDICARE PART A & B [employer] MEDICARE SUPPLEMENT MEDICARE PART A & B [facility] [employer] MEDICARE SUPPLEMENT Advance Directives For more information, please contact: [phone] (9AM - 5PM [facility], Sunday-Sunday) * Full Code (Latest Code Status on File) Date Activated Date Inactivated Comments 06/04/2023 9:19 AM Question Answer Comments Code Status Confirmed With: Patient Care Teams Fine Wire Drawer Relationship Specialty Start Date End Date Radha Jo DO [address] [place] [address] [address] [place] [address] PCP - General Family Medicine 05/03/23 Additional Source Comments The information contained in this document represents components of the legal health record. It is not the complete legal health record.[facility]
== END 2025-04-23 10:29 | disposition home or self-care (01) ==
LOC: HO.HNS 09:40
PROVIDERS: PCP Family Medicine; Visit Provider Physician Assistant
DX: Z98.890 Other specified postprocedural states (principal)
CPT/HCPCS: 99024

== ENCOUNTER → 2025-04-23 09:39 | Outpatient (BNVA) | payer MEDICARE, OTHER, SELFPAY | PROVIDERS: PCP Family Medicine; Visit Provider Physician Assistant | DX: Z47.89 Encounter for other orthopedic aftercare (principal); Z98.890 Other specified postprocedural states | CPT/HCPCS: 99212 ==